=== PATIENT | female | born 1970 | race Caucasian/White ===

== ENCOUNTER 2017-11-02 14:37 | Emergency (ER) | payer OTHER ==
[2017-11-02 17:19] LABS: ABS Basophils 0 10^3/ul (0-0.2); ABS Eosinophils 0.2 10^3/ul (0-0.6); ABS Lymphocytes 2.2 10^3/ul (1.0-4.8); ABS Monocytes 0.4 10^3/ul (0-0.8); ABS Neutrophils 2.8 10^3/ul (1.5-7.7); ABS Nucleated RBC 0 10^3/ul; Eosinophil % 3.5 % (0-6); Hematocrit 38 % (35-47); Lymphocyte % 39.6 % (25-47); Mean Corpuscular HGB Conc 35 g/dl (31-36); Mean Corpuscular Hemoglobin 29 pg (27-31); Mean Corpuscular Volume 85 fL (80-97); Mean Platelet Volume 6 um3 (7.4-10.4); Nucleated Red Blood Cells % 0.1; Platelet Count 303 10^3/ul (150-450); Red Blood Count 4.46 10^6/ul (4.0-5.4); Red Cell Distribution Width 14 % (10.5-15); White Blood Count 5.6 10^3/ul (3.5-10.8)
[2017-11-02 17:37] LABS: EGFR Non-African American 125.3 (>60)
--- NOTE | 2017-11-02 18:13 | RAD ---
HISTORY: Right leg pain and swelling TECHNIQUE: Multiple transverse and longitudinal ultrasound images were obtained of the veins of the right lower extremity using grayscale, color Doppler, and spectral Doppler imaging with and without compression and with augmentation. FINDINGS: VEINS: The common femoral vein, deep femoral vein, femoral vein and popliteal vein are compressible throughout their course, with normal flow on color Doppler imaging and normal response to augmentation on spectral Doppler imaging. SOFT TISSUES: At the right popliteal fossa there is a mildly echogenic and avascular structure measuring 3.0 x 4.9 cm in the axial plane and 9.3 cm in sagittal projection. IMPRESSION: 1. No sonographic evidence of deep vein thrombosis. 2. Sonographic findings are most consistent with a complex right popliteal fossa cyst.
[2017-11-02 18:15] VITALS: BP 146/82
--- NOTE | 2017-11-04 08:40 | ED ---
Alex Moss Angela, scribed for Duane Lopez MD on 11/02/17 at 1704 . Lower Extremity - HPI Summary HPI Summary: This pt is a 47 y/o female presenting [facility] sent by podiatry for right foot pain to rule out DVT. Pt reports she went to see her slubber runner today, Dr. Gusman (in [place], [place]) and was told to come to the ED to rule out DVT. She states she has had this pain for days now. Pt notes she has a hook's cyst behind her right knee. PMHx: psoriatic arthritis, diabetes. - History of Current Complaint Chief Complaint: EDExtremityLower Stated Complaint: RT FOOT SWELLING Hx Obtained From: Patient Mechanism Of Injury: Other - none Onset of Pain: Days Onset/Duration: Still Present Severity Currently: Severe Pain Intensity: 7 Pain Scale Used: 0-10 Numeric Location: Is Discrete @ - right leg Associated Signs And Symptoms: Positive: Swelling Aggravating Factor(s): Nothing Alleviating Factor(s): Nothing Able to Bear Weight: Yes - Allergies/Home Medications Allergies/Adverse Reactions: Allergies Allergy/AdvReac Type Severity Reaction Status Date / Time metformin Allergy Intermediate Shortness Verified 11/02/17 16:54 of Breath amoxicillin AdvReac Severe GI Upset Verified 11/02/17 17:00 Home Medications: Home Medications Cider Vinegar [Apple Cider Vinegar] 500 mg PO DAILY 11/02/17 [History Confirmed 11/02/17] Ibuprofen TAB* [Motrin TAB* 600 MG] 600 mg PO Q6H PRN 11/02/17 [History Confirmed 11/02/17] Magnesium CITRATE* [Citrate of Magnesia*] 100 ml PO BID 11/02/17 [History Confirmed 11/02/17] Milk Thistle [Milk Thistle Extract] 175 mg PO DAILY 11/02/17 [History Confirmed 11/02/17] Multivitamin with Folic Acid [Essential One Daily Multi] 1 tab PO DAILY [History Confirmed 11/02/17] Crocker-3S/Dha/Epa/Fish Oil [Fish Oil 1,200 mg Softgel] 1 each PO DAILY 11/02/17 [ History Confirmed 11/02/17] Pantoprazole TAB (NF) [Protonix TAB (NF)] 40 mg PO DAILY 11/02/17 [History Confirmed 11/02/17] Sertraline HCl [Zoloft] 100 mg PO DAILY 11/02/17 [History Confirmed 11/02/17] Vitamin D3 50 mg PO DAILY 11/02/17 [History Confirmed 11/02/17] glipiZIDE [Glipizide ER] 5 mg PO DAILY 11/02/17 [History Confirmed 11/02/17] PMH/Surg Hx/FS Hx/Imm Hx Endocrine/Hematology History: Reports: Hx Diabetes - TYPE II- ON ORAL MEDICATION FOR Cardiovascular History: Denies: Hx Hypertension, Hx Pacemaker/ICD History: Denies: Hx Dialysis, Hx Renal Disease Musculoskeletal History: Reports: Hx Arthritis Denies: Hx Rheumatoid Arthritis, Hx Osteoporosis Sensory History: Denies: Hx Contacts or Glasses, Hx Hearing Aid Opthamlomology History: Denies: Hx Contacts or Glasses Neurological History: Reports: Hx Headaches - ONCE IN A WHILE Psychiatric History: Reports: Hx Anxiety - ON MEDICATION FOR, Hx Depression - ON MEDICATION FOR Denies: Hx Panic Disorder - Surgical History Surgery Procedure, Year, and Place: Partial hysterectomy 2011. RIGHT KNEE [id number]. CARPAL TUNNEL RIGHT HAND. LUMPECTOMY Hx Anesthesia Reactions: No Infectious Disease History: No Infectious Disease History: Denies: Traveled Outside the [place] in Last 30 Days - Family History Family History: Father: CHF. Brother and sister: Hepatitis C - Social History Alcohol Use: Weekly Alcohol Amount: 5 BEERS - 2 TIMES PER WEEK Substance Use Type: Reports: None Smoking Status (MU): Light Every Day Tobacco Smoker Amount Used/How Often: 5 CIGARETTES PER DAY X 7 YEARS ON AND OFF Review of Systems Negative: Fever, Chills Eyes: Negative ENT: Negative Cardiovascular: Negative Respiratory: Negative Musculoskeletal: Other - right foot pain and swelling All Other Systems Reviewed And Are Negative: Yes Physical Exam - Summary Physical Exam Summary: VITAL SIGNS: Reviewed. GENERAL: Patient is a well-developed and nourished female who is lying comfortable in the stretcher. Patient is not in any acute respiratory distress. HEAD AND FACE: No signs of trauma. No ecchymosis, hematomas or skull depressions. No sinus tenderness. EYES: PERRLA, EOMI x 2, No injected conjunctiva, no nystagmus. EARS: Hearing grossly intact. Ear canals and tympanic membranes are within normal limits. MOUTH: Oropharynx within normal limits. NECK: Supple, trachea is midline, no adenopathy, no JVD, no carotid bruit, no c- spine tenderness, neck with full ROM. CHEST: Symmetric, no tenderness at palpation LUNGS: Clear to auscultation bilaterally. No wheezing or crackles. CVS: Regular rate and rhythm, S1 and S2 present, no murmurs or gallops appreciated. ABDOMEN: Soft, non-tender. No signs of distention. No rebound no guarding, and no masses palpated. Bowel sounds are normal. EXTREMITIES: FROM in all major joints, no edema, no cyanosis or clubbing. RLE: good pulses, good capillary refill. NEURO: Alert and oriented x 3. No acute neurological deficits. Speech is normal and follows commands. SKIN: Dry and warm Triage Information Reviewed: Yes Vital Signs On Initial Exam: Initial Vitals Temp Pulse Resp BP Pulse Ox 98.0 F 85 16 160/81 97 11/02/17 14:40 11/02/17 14:40 11/02/17 14:40 11/02/17 14:40 11/02/17 14:40 Vital Signs Reviewed: Yes Diagnostics - Vital Signs Vital Signs Temp Pulse Resp BP Pulse Ox 11/02/17 14:40 98.0 F 85 16 160/81 97 - Laboratory Result Diagrams: 11/02/17 17:05 11/02/17 17:05 Lab Statement: Any lab studies that have been ordered have been reviewed, and results considered in the medical decision making process. - Ultrasound No standard instances Ultrasound Interpretation: No Acute Changes - Right lower extremity US IMPRESSION: 1. No sonographic evidence of deep vein thrombosis. 2. Sonographic findings are most consistent with a complex right popliteal fossa cyst. Dr. Lopez has reviewed this radiology report. Ultrasound Interpretation Completed By: Radiologist Lower Extremity Course/Dx - Course Assessment/Plan: This pt is a 47 y/o female presenting to [facility] sent by podiatry for right foot pain to rule out DVT. Pt reports she went to see her slubber runner today, Dr. Gusman (in [place], [place]) and was told to come to the ED to rule out DVT. She states she has had this pain for days now. Pt notes she has a hook's cyst behind her right knee. PMHx: psoriatic arthritis, diabetes. Test results without any significant abnormalities except for CRP of 30. US of right lower extremity shows 1. No sonographic evidence of deep vein thrombosis. 2. Sonographic findings are most consistent with a complex right popliteal fossa cyst. Since the pt does not have a DVT she will be discharged home with follow up from PCP. Pt is hemodynamically stable, alert and oriented x3. - Diagnoses Provider Diagnoses: Leg pain Discharge - Discharge Plan Condition: Stable Disposition: HOME Patient Education Materials: Leg Pain (ED) Referrals: Lilia Story MD [Primary Care Provider] - 3 Days Additional Instructions: Please follow up with your primary care provider. RETURN TO THE ED FOR ANY WORSENING SYMPTOMS. The documentation as recorded by the Alex daniel Angela accurately reflects the service I personally performed and the decisions made by , Duane Lopez MD.
== END 2017-11-02 18:49 | disposition home or self-care (01) ==
LOC: ED 14:37
DX: M79.604 Pain in right leg (principal); E11.9 Type 2 diabetes mellitus without complications; R51 Headache; F17.210 Nicotine dependence, cigarettes, uncomplicated
CPT/HCPCS: 36415; 80053; 85025; 86140; 99283

== ENCOUNTER 2018-11-09 05:46 | Inpatient (IN) | payer OTHER ==
--- NOTE | 2018-10-27 13:15 | HP ---
ADDENDUM: MEDICATIONS: 1. Glipizide 5 mg p.o. t.i.d. 2. Omeprazole 20 mg one each day. 3. Sertraline 100 mg 1 each day. 4. Januvia 100 mg 1 a day. 5. Ibuprofen 600 mg b.i.d. as needed. 6. She also takes multivitamins, omega-3 at 1000 mg per day. 7. Apple cider vinegar twice a day. 8. Milk thistle 175 mg each day. 9. Mag citrate 100 mg twice daily. 10. Vitamin D3 at 5000 units 1 tablet daily. [id number]/[facility] #: [id number] MTDD
--- NOTE | 2018-10-27 13:32 | HP ---
HISTORY AND PHYSICAL: DATE OF ADMISSION: 11/09/18 CHIEF COMPLAINT: Right knee pain. HISTORY OF PRESENT ILLNESS: She is 48 and has had increasingly severe knee symptoms and arthritis fo r the last years. She was, last year, ready to have a total knee replacement with Dr. Welch at [facility] and it was canceled because her hemoglobin A1cs were too high, so in the interim, alonzo decided to have her knee done here and we have been seeing her. The right knee pain limits her walking to 1 to 2 blocks. She has been doing stairs one at a time for the last couple of years and the right knee pain awakens her during sleep several times each night. She has been using ibuprofen for pain. She is now under the care of Dr. Poole for her primary care [facility]. No history of a heart attack, no history of chest pain felt to be related to her heart. No lung prob lems, no pneumonia or bronchitis. She has not been short of breath. She is able to walk up 2 flight s of stairs without chest pain and she thinks with 2 flights of stairs, there might be some shortness of breath. She smokes 1 pack per week. She drinks 8 beers per week. No history of cancers, no his tory of bleeding difficulties. PAST MEDICAL HISTORY: She has had adult-onset diabetes. She is a smoker. She is somewhat overweigh t. She has had female stress incontinence, depression, type 2 diabetes, GERD, also history of psoria sis. PAST SURGICAL HISTORY: She has had a partial hysterectomy. ALLERGIES: To AMOXICILLIN and I do plan to use Ancef for her perioperative prophylaxis. Also allerg ic to METFORMIN. FAMILY HISTORY: Positive for arthritis. SOCIAL HISTORY: She lives with her . She is an infrequent [employer]. PHYSICAL EXAMINATION GENERAL: She is slightly overweight, not acutely distressed, a slight limp on the right. VITAL SIGNS: Height 63 inches, weight 204 pounds. Pulse 79, blood pressure 132/74. HEENT: The head is NC/AT. LUNGS: Clear bilaterally. HEART: Regular. S1, S2 normal. No murmurs or gallops. ABDOMEN: Soft and nontender. There is no organomegaly. EXTREMITIES: The right leg has a 2+ dorsalis pedis pulse. The right knee has had medial tenderness, stable MCL and LCL extension -2 to 3 degrees, flexion 120. The thigh and calf are soft. Neurovascu larly, the foot is intact. NEUROLOGIC: The cranial nerves are grossly intact. DIAGNOSTIC STUDIES: The radiographs show bone on bone medial arthritis of the right knee and there are also patellofemoral degenerative changes. IMPRESSION AND PLAN: Severe right knee patellofemoral arthritis. The patient has adult-onset diabet es. She has been working hard on the A1c and the plan is for a right total knee replacement. [id number]/[facility] #: [id number]
[~2018-11-09 05:46] MED LIST: Buffered Lidocaine 1% SYRIN* 1 ML/SYRINGE INTRADERM ONE; Tranexamic Acid 1,000 MG in NS 0.9% 50 ML* (outpatient use) IV SCH
--- OUTSIDE RECORDS SUMMARY | 2018-11-09 05:50 | XMS REPORT | Continuity of Care Document ---
:1970 External Reference #:[id number] Author Name Carrie Chavira Care Team Providers Name Role Phone Masood Pendleton MD Primary Care Physician Unavailable Payers Date Identification Numbers Payment Provider Subscriber Expires: 2011 Policy Number: [id number] Medicaid Hallie Negro PayID: [id number] [address] [place] [address] Policy Number: [id number] [place] Hallie Negro Group Number: [id number] [address] PayID: [id number] [place] [address] Advance Directives Description No Information Available Problems Date Description Provider Status Onset: 03/23/2018 Gastroesophageal reflux disease Masood Pendleton M.D. Active Onset: 08/18/2016 Localized, primary osteoarthritis Yaz Mehta M.D. Active Onset: 08/18/2016 Localized, primary osteoarthritis of Yaz Mehta M.D. Active the ankle and/or foot Onset: 03/23/2018 Type 2 diabetes mellitus Masood Pendleton M.D. Active Note: glipizide 2011 Onset: 03/23/2018 Mild recurrent major depression Masood Pendleton M.D. Active Onset: 03/23/2018 Female stress incontinence Masood Pendleton M.D. Active Onset: 03/23/2018 Diarrhea Masood Pendleton M.D. Active Onset: 04/06/2018 Mixed hyperlipidemia Masood Pendleton M.D. Active Onset: 04/06/2018 Obesity Masood Pendleton M.D. Active Onset: 04/06/2018 Ganglion of hand Masood Pendleton M.D. Active Onset: 05/05/2018 Tobacco user Masood Pendleton M.D. Active Onset: 07/21/2018 Knee pain Masood Pendleton M.D. Active Onset: 07/21/2018 Vitamin D deficiency Masood Pendleton M.D. Active Family History Date Family Member(s) Observation Comments General Arthritis Father Psoriasis Father due to Diabetes () - Age 74 Mother Diabetes Maternal Grandmother Stomach Cancer Social History Type Date Description Comments Sex Unknown Education Highest level completed, 12th grade Marital Status lives with ex Lives With Occupation Unemployed Tobacco Use Start: Unknown Heavy tobacco smoker (more than 10 cigarettes/day) Smoking Status Reviewed: 10/27/18 Heavy tobacco smoker (more than 10 cigarettes/day) ETOH Use Occasionally consumes alcohol ETOH Use 6 beers weekly Tobacco Use Start: Unknown Patient is a current smokes 1 pack a week smoker, smokes every day Exercise Exercises rarely Type/Frequency Allergies, Adverse Reactions, Alerts Date Description Reaction Status Severity Comments 11/13/2015 Amoxicillin Nausea and Vomiting Active 11/13/2015 Metformin sob;joint pain, dizzines Active Medications Medication Date Status Form Strength Qnty SIG Indications Ordering Provider Ranitidine 150 07/05 Active Tablets 150mg 30tab one tablet PO Annalise Maximum s at bedtime as TINA Urias Strength directed. Betamethasone 07/09 Active Lotion 0.1% 60uni apply two Rei Val ts times daily as mari Melendez M.D. Calcipotriene/ Active Ointment 0.005-0.0 use on Unknown Betamethasone / 64% affected area Dipropionate 2x daily Multi Complete Active Capsules daily Unknown Glipizide Active Tablets 5mg 1 by mouth three times a day [place] 3 Active Capsules 1000mg 1 by mouth qd. Unknown Omeprazole Active Capsules 20mg [address] every day Sertraline HCL Active Tablets 100mg 1 by mouth Unknown every day Triamcinolone Active Cream 0.5% apply to Unknown Acetonide affected area prn Apple Cider Active Tablets twice daily Unknown Vinegar Milk Thistle Active Capsules 175mg daily Unknown Magnesium Active Tablets 100mg twice daily Unknown Citrate /0000 Vitamin D3 Active Capsules 5000Unit take one Unknown Maximum /0000 capsule/tablet Strength daily by mouth Januvia Active Tablets 100mg 30tab Take 1 Tablet Masood / s By Mouth Every Pachikara, Day M.D. Ibuprofen Active Tablets 600mg 30tab Take 1 Tablet Caitlin /0000 s By Mouth Every Cotton, 12 Hours as M.D. Needed Steglatro 07/21 Hx Tablets 5mg 30tab once daily am K21.9 s Pachikara, - M.D. 07/21 Losartan 05/05 Hx Tablets 25mg 30tab 1 by mouth E11.9 [place] s once a day Pachikara, - M.D. 10/27 Invokana 04/06 Hx Tablets 100mg 30tab 1 by mouth E11.9 s every day (Not Pachikara, - taking) M.D. 05/25 Januvia 03/23 Hx Tablets 100mg 30tab 1 by mouth E11.9 s every day Pachikara, - M.D. 04/06 Doxycycline 01/29 Hx Capsules 100mg 30cap 1 by mouth s twice a day Al, - M.D. 01/06 Luxiq 07/08 Hx Foam 0.12% 100gm apply to scalp psoriasis once Al, - every other M.D. 07/09 day as needed for psoriasis Plaquenil 07/08 Hx Tablets 200mg 42tab Take one by R74.8 s mouth every Al, - other day for M.D. 01/06 1 week then by mouth every day ongoing Humira Pen 06/25 Hx PNKT 40mg/0.8M 2unit inject 40 mg L40.59 L s subcutaneously Al, - every other M.D. 07/08 week has started yet Stelara 06/13 Hx Soln 90mg/ml 3ml 90 mg SQ L40.59 Prefill initially, Al, - Syringe followed by 90 M.D. 10/05 mg SQ 4 later and then 90mg SQ every 12 weeks Sulfasalazine 01/02 Hx Tablets 500mg 42tab Take [address] cheung By Mouth Every Al, - Day For 7 Days M.D. 02/19 Then Take Tablet By Mouth Two Times Daily Enbrel 12/11 Hx Solution 50mg/ml 3.920 inject L40.53 Rei Surecl Auto-Inje ml subcutaneously Al - ct 50mg every M.D. Sulfasalazine 11/13 Hx Tablets 500mg 42tab take one tab L40.53 DR cheung daily for 1 Al, - week then 1 M.D. 12/11 tab twice /2015 daily ongoing Vitamin D Hx Tablets by mouth Unknown /0000 everyday - 03/23 Pantoprazole Hx Tablets 40mg 1 by mouth Unknown Sodium /0000 DR every day - 05/05 Medications Administered in Office Medication Date Status Form Strength Qnty SIG Indications Ordering Provider Triamcinolone 05/05/ Administered Injection Rei Juarez) 2017 Mariajose Mleendez Triamcinolone 05/05/ Administered Injection Rei Juarez) 2017 Mariajose Melendez Triamcinolone 05/05/ Administered Injection Rei Juarez) 2017 Mariajose Melendez Triamcinolone 05/05/ Administered Injection Rei Juarez) 2017 Mariajose Melendez Depomedrol 40MG 08/18/ Administered Injection Yaz 2015 Mariajose Mehta Immunizations CPT Code Status Date Vaccine Lot # [id number] Given 07/21/2018 Influenza Virus Vaccine, Quadrivalent, Split, [id number] Preservative Free [id number] Given 06/13/2016 Influenza Virus Vaccine, Quadrivalent, Split, [id number] Preservative Free 08809 Given 12/12/2015 Pneumonia Vaccine [id number] Vital Signs Date Vital Result Comment 10/27/2018 11:40am Height 63 inches 5'3" Weight 204.00 lb Heart Rate 79 /min BP Systolic Sitting 132 mmHg BP Diastolic Sitting 74 mmHg O2 % BldC Oximetry 97 % BMI (Body Mass Index) 36.1 kg/m2 10/27/2018 9:35am Height 63 inches 5'3" Weight 202.00 lb Heart Rate 66 /min BP Systolic 138 mmHg BP Diastolic 78 mmHg Body Temperature 98.3 F Pain Level 4 BMI (Body Mass Index) 35.8 kg/m2 09/29/2018 10:48am Height 63 inches 5'3" Weight 198.00 lb Heart Rate 69 /min BP Systolic Sitting 135 mmHg BP Diastolic Sitting 84 mmHg Body Temperature 97.9 F O2 % BldC Oximetry 97 % BMI (Body Mass Index) 35.1 kg/m2 07/28/2018 9:25am Height 63 inches 5'3" Weight 205.75 lb Heart Rate 72 /min BP Systolic 132 mmHg BP Diastolic 84 mmHg Respiratory Rate 16 /min Body Temperature 97.7 F Pain Level 5 BMI (Body Mass Index) 36.4 kg/m2 07/21/2018 1:55pm Height 62 inches 5'2" Weight 207.00 lb Heart Rate 75 /min BP Systolic Sitting 135 mmHg BP Diastolic Sitting 82 mmHg O2 % BldC Oximetry 90 % BMI (Body Mass Index) 37.9 kg/m2 07/05/2018 1:12pm Height 62 inches 5'2" Weight 206.00 lb Heart Rate 74 /min BP Systolic 133 mmHg BP Diastolic 80 mmHg BMI (Body Mass Index) 37.7 kg/m2 06/07/2018 3:06pm Height 62 inches 5'2" Weight 202.19 lb Heart Rate 69 /min BP Systolic 124 mmHg BP Diastolic 81 mmHg Body Temperature 97.4 F Pain Level 3 burning in stomach O2 % BldC Oximetry 96 % BMI (Body Mass Index) 37.0 kg/m2 05/05/2018 1:21pm Height 62 inches 5'2" Weight 206.00 lb Heart Rate 79 /min BP Systolic Sitting 154 mmHg BP Diastolic Sitting 77 mmHg O2 % BldC Oximetry 95 % BMI (Body Mass Index) 37.7 kg/m2 05/05/2018 11:44am Height 62 inches 5'2" Weight 206.25 lb Heart Rate 74 /min BP Systolic Sitting 140 mmHg BP Diastolic Sitting 85 mmHg Respiratory Rate 14 /min Pain Level 7 BMI (Body Mass Index) 37.7 kg/m2 04/06/2018 12:56pm Height 62 inches 5'2" Weight 208.12 lb Heart Rate 78 /min BP Systolic Sitting 130 mmHg BP Diastolic Sitting 78 mmHg Body Temperature 98.0 F O2 % BldC Oximetry 97 % BMI (Body Mass Index) 38.1 kg/m2 04/06/2018 11:48am Height 62 inches 5'2" Weight 209.00 lb Heart Rate 73 /min BP Systolic 124 mmHg BP Diastolic 80 mmHg O2 % BldC Oximetry 96 % BMI (Body Mass Index) 38.2 kg/m2 Last Menstrual Period [id number] 03/23/2018 3:58pm Height 62 inches 5'2" Weight 204.00 lb Heart Rate 103 /min BP Systolic Sitting 130 mmHg BP Diastolic Sitting 78 mmHg Body Temperature 97.8 F O2 % BldC Oximetry 95 % BMI (Body Mass Index) 37.3 kg/m2 01/06/2018 8:17am Height 63 inches 5'3" Weight 204.00 lb Heart Rate 64 /min BP Systolic Sitting 144 mmHg BP Diastolic Sitting 90 mmHg Respiratory Rate 14 /min Pain Level 5 BMI (Body Mass Index) 36.1 kg/m2 01/21/2017 2:12pm Height 63 inches 5'3" Weight 218.00 lb Heart Rate 77 /min BP Systolic Sitting 151 mmHg BP Diastolic Sitting 98 mmHg Body Temperature 98.1 F Pain Level 3 BMI (Body Mass Index) 38.6 kg/m2 12/10/2016 11:38am Height 63 inches 5'3" Weight 200.00 lb Heart Rate 70 /min BP Systolic 138 mmHg BP Diastolic 80 mmHg Body Temperature 98.2 F Pain Level 5 BMI (Body Mass Index) 35.4 kg/m2 11/19/2016 11:28am Height 62 inches 5'2" Weight 200.00 lb Heart Rate 74 /min BP Systolic 129 mmHg BP Diastolic 86 mmHg Pain Level 5 BMI (Body Mass Index) 36.6 kg/m2 08/18/2016 10:37am Height 62 inches 5'2" Weight 215.00 lb Heart Rate 72 /min BP Systolic 137 mmHg BP Diastolic 80 mmHg Respiratory Rate 17 /min Body Temperature 98.7 F Pain Level 4 BMI (Body Mass Index) 39.3 kg/m2 07/08/2016 8:54am Height 62 inches 5'2" Weight 221.00 lb Heart Rate 68 /min BP Systolic Sitting 128 mmHg BP Diastolic Sitting 70 mmHg Body Temperature 97.9 F Pain Level 4 BMI (Body Mass Index) 40.4 kg/m2 06/13/2016 11:05am Height 62 inches 5'2" Weight 224.00 lb Heart Rate 84 /min BP Systolic Sitting 124 mmHg BP Diastolic Sitting 70 mmHg Body Temperature 98.5 F Pain Level 4 BMI (Body Mass Index) 41.0 kg/m2 05/19/2016 11:24am Height 62 inches 5'2" Weight 221.25 lb Heart Rate 65 /min BP Systolic 140 mmHg BP Diastolic 90 mmHg Body Temperature 98.3 F Pain Level 2 O2 % BldC Oximetry 98 % BMI (Body Mass Index) 40.5 kg/m2 02/20/2016 2:12pm Height 62 inches 5'2" Weight 215.00 lb Heart Rate 70 /min BP Systolic Sitting 122 mmHg BP Diastolic Sitting 70 mmHg Respiratory Rate 14 /min Body Temperature 98.0 F Pain Level 1 BMI (Body Mass Index) 39.3 kg/m2 12/12/2015 9:00am Height 62 inches 5'2" Weight 220.00 lb Heart Rate 70 /min BP Systolic Sitting 142 mmHg BP Diastolic Sitting 80 mmHg Pain Level 7 BMI (Body Mass Index) 40.2 kg/m2 11/13/2015 9:59am Height 62 inches 5'2" Weight 219.50 lb Heart Rate 70 /min BP Systolic Sitting 138 mmHg BP Diastolic Sitting 80 mmHg Body Temperature 98.0 F Pain Level 8 BMI (Body Mass Index) 40.1 kg/m2 12/11/2010 4:06pm Height 62 inches 5'2" Weight 215.00 lb Heart Rate 80 /min BP Systolic 133 mmHg BP Diastolic 86 mmHg BMI (Body Mass Index) 39.3 kg/m2 Results Test Date Facility Test Result H/L Range Note Order 10/27/2018 [facility] EKG <pending> Laboratory test 09/29/2018 [facility] Hemoglobin A1c 7.4 High 5-7 finding Laboratory test 07/28/2018 [facility] Vitamin D Total 38.4 ng/ mL N 20-[address]) [place] [address] [phone] Laboratory test 06/23/2018 [facility] Clotest SEE RESULT 1 , [address] [place] [address] [phone] Laboratory test 06/23/2018 [facility] Surgical Interface SEE RESULT 3, [address] [place] [address] [phone] Lipid Profile 04/28/2018 [facility] Triglycerides 172 mg/dL 5, 6 (Trig/Chol/HDL) [address] [place] [address] [phone] Cholesterol 196 mg/dL 7 HDL Cholesterol 49.8 mg/dL 8 LDL Cholesterol 112 mg/dL 9 Laboratory test 04/02/2018 [facility] Stool Culture SEE RESULT [address] [place] [address] [phone] Helico Pylori Antigen- Stool Negative Negative 11 Comp Metabolic Panel 03/31/2018 [facility] Sodium 137 mmol/L N 135-[address] [place] [address] [phone] Potassium 4.4 mmol/L N 3.5-5.0 Chloride 101 mmol/L N 101-111 Co2 Carbon Dioxide 27 mmol/L N 22-32 Anion Gap 9 mmol/L N 2-11 Glucose 264 mg/dL High 70-100 Blood Urea Nitrogen 13 mg/dL N 6-24 Creatinine 0.52 mg/dL N 0.51-0.95 BUN/Creatinine Ratio 25.0 High 8-20 Calcium 10.0 mg/dL N 8.6-10.3 Total Protein 7.0 g/dL N 6.4-8.9 Albumin 4.3 g/dL N 3.2-5.2 Globulin 2.7 g/dL N 2-4 Albumin/Globulin Ratio 1.6 N 1-3 Total Bilirubin 0.30 mg/dL N 0.2-1.0 Alkaline Phosphatase 43 U/L N 34-104 Alt 44 U/L N 7-52 Ast 34 U/L N 13-39 Egfr Non- 125.3 >60 Egfr 151.7 >60 12 Lipid Profile 03/31/2018 [facility] Triglycerides 102 mg/dL 13 (Trig/Chol/HDL) [address] [place] [address] [phone] Cholesterol 203 mg/dL 14 HDL Cholesterol 46.8 mg/dL 15 LDL Cholesterol 136 mg/dL 16 Urine Microalbumin 03/31/2018 [facility] Ur Microalbumin 17.8 mg /L Random [address] (mg/L) [place] [address] [phone] Urine Creatinine 152.95 mg/dL Urine Microalbumin/Creatinine 11.6 ug/mg N <31 Laboratory test 03/23/2018 [facility] Hemoglobin A1c 8.9 High 5-7 finding Laboratory test 01/06/2018 [facility] C Reactive 21.83 mg/L High < 5.00 [address] [place] [address] [phone] Erythrocyte Sed Rate 48 mm/Hr High 0-14 18 Vitamin D, 1,25 Dihydroxy 59 pg/mL 18-78 19 CBC Auto Diff 01/06/2018 [facility] White Blood 7.6 10^3/uL N 3.5-10.[address] [place] [address] [phone] Red Blood Count 4.62 10^6/uL N 4.0-5.4 Hemoglobin 13.8 g/dL N 12.0-16.0 Hematocrit 40 % N 35-47 Mean Corpuscular Volume 87 fL N 80-97 Mean Corpuscular Hemoglobin 30 pg N 27-31 Mean Corpuscular HGB Conc 34 g/dL N 31-36 Red Cell Distribution Width 14 % N 10.5-15 Platelet Count 314 10^3/uL N 150-450 Mean Platelet Volume 6.9 um3 Low 7.4-10.4 Abs Neutrophils 4.6 10^3/uL N 1.5-7.7 Abs Lymphocytes 2.2 10^3/uL N 1.0-4.8 Abs Monocytes 0.5 10^3/uL N 0-0.8 Abs Eosinophils 0.2 10^3/uL N 0-0.6 Abs Basophils 0 10^3/uL N 0-0.2 Abs Nucleated RBC 0 10^3/uL Granulocyte % 61.0 % N 38-83 Lymphocyte % 29.6 % N 25-47 Monocyte % 6.1 % N 0-7 Eosinophil % 3.0 % N 0-6 Basophil % 0.3 % N 0-2 Nucleated Red Blood Cells % 0.1 Comp Metabolic Panel 01/06/2018 [facility] Sodium 136 mmol/L Low 139-[address] [place] [address] [phone] Potassium 4.5 mmol/L N 3.5-5.0 Chloride 103 mmol/L N 101-111 Co2 Carbon Dioxide 24 mmol/L N 22-32 Anion Gap 9 mmol/L N 2-11 Glucose 232 mg/dL High 70-100 Blood Urea Nitrogen 15 mg/dL N 6-24 Creatinine 0.59 mg/dL N 0.51-0.95 BUN/Creatinine Ratio 25.4 High 8-20 Calcium 9.8 mg/dL N 8.6-10.3 Total Protein 7.2 g/dL N 6.4-8.9 Albumin 4.4 g/dL N 3.2-5.2 Globulin 2.8 g/dL N 2-4 Albumin/Globulin Ratio 1.6 N 1-3 Total Bilirubin 0.30 mg/dL N 0.2-1.0 Alkaline Phosphatase 60 U/L N 34-104 Alt 37 U/L N 7-52 Ast 32 U/L N 13-39 Egfr Non- 108.3 >60 Egfr 139.3 >60 20 Laboratory test 01/21/2017 [facility] C Reactive 22.38 mg/L High < 5.00 [address] [place] [address] [phone] Erythrocyte Sed Rate 34 mm/Hr High 0-14 22 Celiac Panel 01/21/2017 [facility] Tissue Transglutaminase <1.2 U/mL N [address] [place] [address] [phone] Immunoglobulin A 250 mg/dL N 61 - 356 Celiac Interpretation See Comment N 24 Celiac Hla DQ1/DQ2 01/21/2017 [facility] [id number] SEE BELOW N [address] [place] [address] [phone] [id number] SEE BELOW N 26 Celiac Gene Pairs Present? No N Celiac Gene Interpretation See Comment N 27 Laboratory test 01/21/2017 [facility] Lyme Disease Negative N Negative [address] [place] [address] [phone] CBC Auto Diff 01/21/2017 [facility] White Blood 7.0 10^3/uL N 3.5-10.[address] [place] [address] [phone] Red Blood Count 4.67 10^6/uL N 4.0-5.4 Hemoglobin 13.6 g/dL N 12.0-16.0 Hematocrit 40 % N 35-47 Mean Corpuscular Volume 87 fL N 80-97 Mean Corpuscular Hemoglobin 29 pg N 27-31 Mean Corpuscular HGB Conc 34 g/dL N 31-36 Red Cell Distribution Width 13 % N 10.5-15 Platelet Count 263 10^3/uL N 150-450 Mean Platelet Volume 7 um3 Low 7.4-10.4 Abs Neutrophils 3.9 10^3/uL N 1.5-7.7 Abs Lymphocytes 2.4 10^3/uL N 1.0-4.8 Abs Monocytes 0.5 10^3/uL N 0-0.8 Abs Eosinophils 0.2 10^3/uL N 0-0.6 Abs Basophils 0 10^3/uL N 0-0.2 Abs Nucleated RBC 0 10^3/uL N Granulocyte % 55.7 % N 38-83 Lymphocyte % 33.8 % N 25-47 Monocyte % 7.1 % N 1-9 Eosinophil % 2.8 % N 0-6 Basophil % 0.6 % N 0-2 Nucleated Red Blood Cells % 0 N Comp Metabolic Panel 01/21/2017 [facility] Sodium 135 mmol/L N 133-[address] [place] [address] [phone] Potassium 4.0 mmol/L N 3.5-5.0 Chloride 101 mmol/L N 101-111 Co2 Carbon Dioxide 27 mmol/L N 22-32 Anion Gap 7 mmol/L N 2-11 Glucose 156 mg/dL High 70-100 Blood Urea Nitrogen 11 mg/dL N 6-24 Creatinine 0.90 mg/dL N 0.51-0.95 BUN/Creatinine Ratio 12.2 N 8-20 Calcium 9.9 mg/dL N 8.6-10.3 Total Protein 7.3 g/dL N 6.4-8.9 Albumin 4.4 g/dL N 3.2-5.2 Globulin 2.9 g/dL N 2-4 Albumin/Globulin Ratio 1.5 N 1-3 Total Bilirubin 0.30 mg/dL N 0.2-1.0 Alkaline Phosphatase 51 U/L N 34-104 Alt 56 U/L High 7-52 Ast 49 U/L High 13-39 Egfr Non- 66.8 N >60 Egfr 85.9 N >60 29 Laboratory test 01/21/2017 [facility] Creatine 93 U/L N 10- 223 [address] Kinase(CK) [place] [address] [phone] Connective 01/21/2017 [facility] Anti-Nuclear 1.3 U High 31 Tissue Panel [address] [place] [address] [phone] Cyclic Citrullinated Peptide <15.6 U N 32 Interpretation See Comment N 33 Cat Scratch 01/21/2017 [facility] Bartonella 1:128 titer N <1: 128 Fever Panel [address] [place] [address] [phone] Bartonella Henselae IgM <1:20 titer N <1:20 Bartonella Godfrey IgG <1:128 titer N <1:128 Bartonella Godfrey IgM <1:20 titer N <1:20 34 Celiac Panel 01/21/2017 [facility] Tissue Transglutaminase <1.2 U/mL N [address] [place] [address] [phone] Immunoglobulin A 250 mg/dL N 61 - 356 Celiac Interpretation See Comment N 36 Connective Tissue 01/21/2017 [facility] Anti-Nuclear 1.3 U High [address] [place] [address] [phone] Cyclic Citrullinated Peptide <15.6 U N 38 Interpretation See Comment N 39 Cat Scratch 01/21/2017 [facility] Bartonella 1:128 titer N <1: 128 Fever Panel [address] [place] [address] [phone] Bartonella Henselae IgM <1:20 titer N <1:20 Bartonella Godfrey IgG <1:128 titer N <1:128 Bartonella Godfrey IgM <1:20 titer N <1:20 40 Laboratory test 01/21/2017 [facility] Lyme Disease Negative N Negative [address] [place] [address] [phone] Celiac Hla 01/21/2017 [facility] Hla-Dqa1 SEE BELOW N 42 DQ1/DQ2 [address] [place] [address] [phone] [id number] SEE BELOW N 43 Celiac Gene Pairs Present? No N Celiac Gene Interpretation See Comment N 44 Laboratory test 01/21/2017 [facility] Aldolase 8.5 U/L Abnormal <7.7 [address] [place] [address] [phone] Laboratory test 07/08/2016 [facility] Erythrocyte Sed 31 High 0-14 [address] Rate mm/[place] [address] [phone] C Reactive Protein 16.03 mg/L High < 5.00 47 TSH (Thyroid Stim Horm) 3.55 mcIU/mL N 0.34-5.60 48 Hepatitis 07/08/2016 [facility] Hepatitis B Nonreactive N Nonreactive Acute Panel [address] [place] [address] Antigen [phone] Hepatitis B Core IgM Nonreactive N Nonreactive Hepatitis A AB IgM Nonreactive N Nonreactive Hepatitis C Antibody Nonreactive N Nonreactive CBC Auto Diff 07/08/2016 [facility] White Blood 6.7 10^3/uL N 3.5-10.[address] [place] [address] [phone] Red Blood Count 4.66 10^6/uL N 4.0-5.4 Hemoglobin 13.4 g/dL N 12.0-16.0 Hematocrit 40 % N 35-47 Mean Corpuscular Volume 86 fL N 80-97 Mean Corpuscular Hemoglobin 29 pg N 27-31 Mean Corpuscular HGB Conc 34 g/dL N 31-36 Red Cell Distribution Width 13 % N 10.5-15 Platelet Count 271 10^3/uL N 150-450 Mean Platelet Volume 8 um3 N 7.4-10.4 Abs Neutrophils 4.3 10^3/uL N 1.5-7.7 Abs Lymphocytes 1.7 10^3/uL N 1.0-4.8 Abs Monocytes 0.4 10^3/uL N 0-0.8 Abs Eosinophils 0.2 10^3/uL N 0-0.6 Abs Basophils 0.1 10^3/uL N 0-0.2 Abs Nucleated RBC 0 10^3/uL N Granulocyte % 64.1 % N 38-83 Lymphocyte % 26.2 % N 25-47 Monocyte % 6.0 % N 1-9 Eosinophil % 2.7 % N 0-6 Basophil % 1.0 % N 0-2 Nucleated Red Blood Cells % 0 N Comp Metabolic Panel 07/08/2016 [facility] Sodium 131 mmol/L Low 133-[address] [place] [address] [phone] Potassium 4.5 mmol/L N 3.5-5.0 Chloride 99 mmol/L Low 101-111 Co2 Carbon Dioxide 24 mmol/L N 22-32 Anion Gap 8 mmol/L N 2-11 Glucose 272 mg/dL High 70-100 Blood Urea Nitrogen 11 mg/dL N 6-24 Creatinine 0.60 mg/dL N 0.51-0.95 BUN/Creatinine Ratio 18.3 N 8-20 Calcium 9.4 mg/dL N 8.6-10.3 Total Protein 6.8 g/dL N 6.4-8.9 Albumin 4.3 g/dL N 3.2-5.2 Globulin 2.5 g/dL N 2-4 Albumin/Globulin Ratio 1.7 N 1-3 Total Bilirubin 0.40 mg/dL N 0.2-1.0 Alkaline Phosphatase 43 U/L N 34-104 Alt 133 U/L High 7-52 Ast 113 U/L High 13-39 Egfr Non- 107.2 N >60 Egfr 137.8 N >60 49 Laboratory test 05/19/2016 [facility] Lyme Disease Negative N Negative [address] [place] [address] [phone] Laboratory test 12/12/2015 [facility] C Reactive 37.34 mg/L High < 5.00 [address] [place] [address] [phone] Erythrocyte Sed Rate 48 mm/Hr High 0-14 52 CBC Auto Diff 12/12/2015 [facility] White Blood 5.7 10^3/uL N 3.5-10.[address] [place] [address] [phone] Red Blood Count 4.62 10^6/uL N 4.0-5.4 Hemoglobin 13.1 g/dL N 12.0-16.0 Hematocrit 40 % N 35-47 Mean Corpuscular Volume 88 fL N 80-97 Mean Corpuscular Hemoglobin 28 pg N 27-31 Mean Corpuscular HGB Conc 33 g/dL N 31-36 Red Cell Distribution Width 14 % N 10.5-15 Platelet Count 253 10^3/uL N 150-450 Mean Platelet Volume 7 um3 Low 7.4-10.4 Abs Neutrophils 3.4 10^3/uL N 1.5-7.7 Abs Lymphocytes 1.8 10^3/uL N 1.0-4.8 Abs Monocytes 0.4 10^3/uL N 0-0.8 Abs Eosinophils 0.1 10^3/uL N 0-0.6 Abs Basophils 0 10^3/uL N 0-0.2 Abs Nucleated RBC 0.01 10^3/uL N Granulocyte % 59.1 % N 38-83 Lymphocyte % 31.3 % N 25-47 Monocyte % 6.4 % N 1-9 Eosinophil % 2.5 % N 0-6 Basophil % 0.7 % N 0-2 Nucleated Red Blood Cells % 0.1 N Comp Metabolic Panel 12/12/2015 [facility] Sodium 131 mmol/L Low 133-[address] [place] [address] [phone] Potassium 4.2 mmol/L N 3.5-5.0 Chloride 99 mmol/L Low 101-111 Co2 Carbon Dioxide 23 mmol/L N 22-32 Anion Gap 9 mmol/L N 2-11 Glucose 209 mg/dL High 70-100 Blood Urea Nitrogen 10 mg/dL N 6-24 Creatinine 0.49 mg/dL Low 0.51-0.95 BUN/Creatinine Ratio 20.4 High 8-20 Calcium 9.7 mg/dL N 8.6-10.3 Total Protein 7.2 g/dL N 6.4-8.9 Albumin 4.4 g/dL N 3.2-5.2 Globulin 2.8 g/dL N 2-4 Albumin/Globulin Ratio 1.6 N 1-3 Total Bilirubin 0.30 mg/dL N 0.2-1.0 Alkaline Phosphatase 48 U/L N 34-104 Alt 89 U/L High 7-52 Ast 87 U/L High 13-39 Egfr Non- 135.4 N >60 Egfr 174.1 N >60 53 Quantiferon Gold 12/12/2015 [facility] M tuberculosis Negative N Negative TB [address] [place] [address] [phone] Tuberculosis Antigen Value 0.02 IU/mL N 54 Laboratory 12/12/2015 [facility] Complement C3 184 mg/dL Abnormal 75 - 55 test finding [address] [place] [address] [phone] Complement C4 47 mg/dL Abnormal 14 - 40 56 Cardiolipin 12/12/2015 [facility] Phospholipid Ab < 4.0 MPL N 57 Igg/Igm [address] IgM, [place] [address] [phone] Phospholipid Ab IgG < 4.0 GPL N 58 Laboratory test 12/12/2015 [facility] [facility] Anti Dna Negative N Negative [address] ([place] [address] Stranded Dna) [phone] Hazel Screen Negative N Negative 60 Ferritin 83.6 ng/mL N 11-307 61 Hepatitis 12/12/2015 [facility] Hepatitis B Nonreactive N Nonreactive Acute Panel [address] [place] [address] Antigen [phone] Hepatitis B Core IgM Nonreactive N Nonreactive Hepatitis A AB IgM Nonreactive N Nonreactive Hepatitis C Antibody Nonreactive N Nonreactive Gloria Hep-2 11/13/2015 [facility] Gloria Pattern Homogeneous N Negative [address] [place] [address] [phone] Gloria Titer 1:320 N <1:80 Gloria Reviewed By MD Luci Jernigan N 62 Hepatitis 11/13/2015 [facility] Hepatitis B Nonreactive N Nonreactive Acute Panel [address] [place] [address] [phone] Hepatitis A AB IgM Nonreactive N Nonreactive Hepatitis C Antibody Nonreactive N Nonreactive Hepatitis B Surface Antigen Nonreactive N Nonreactive Comp Metabolic Panel 11/13/2015 [facility] Sodium 131 mmol/L Low 133-[address] [place] [address] [phone] Potassium 4.4 mmol/L N 3.5-5.0 Chloride 97 mmol/L Low 101-111 Co2 Carbon Dioxide 26 mmol/L N 22-32 Anion Gap 8 mmol/L N 2-11 Glucose 230 mg/dL High 70-100 Blood Urea Nitrogen 11 mg/dL N 6-24 Creatinine 0.56 mg/dL N 0.51-0.95 BUN/Creatinine Ratio 19.6 N 8-20 Calcium 9.8 mg/dL N 8.6-10.3 Total Protein 7.4 g/dL N 6.4-8.9 Albumin 4.4 g/dL N 3.2-5.2 Globulin 3.0 g/dL N 2-4 Albumin/Globulin Ratio 1.5 N 1-3 Total Bilirubin 0.30 mg/dL N 0.2-1.0 Alkaline Phosphatase 53 U/L N 34-104 Alt 70 U/L High 7-52 Ast 64 U/L High 13-39 Egfr Non- 116.0 N >60 Egfr 149.2 N >60 63 CBC Auto Diff 11/13/2015 [facility] White Blood 6.7 10^3/uL N 3.5-10.[address] [place] [address] [phone] Red Blood Count 4.67 10^6/uL N 4.0-5.4 Hemoglobin 13.5 g/dL N 12.0-16.0 Hematocrit 40 % N 35-47 Mean Corpuscular Volume 85 fL N 80-97 Mean Corpuscular Hemoglobin 29 pg N 27-31 Mean Corpuscular HGB Conc 34 g/dL N 31-36 Red Cell Distribution Width 14 % N 10.5-15 Platelet Count 294 10^3/uL N 150-450 Mean Platelet Volume 7 um3 Low 7.4-10.4 Abs Neutrophils 4.3 10^3/uL N 1.5-7.7 Abs Lymphocytes 1.8 10^3/uL N 1.0-4.8 Abs Monocytes 0.4 10^3/uL N 0-0.8 Abs Eosinophils 0.2 10^3/uL N 0-0.6 Abs Basophils 0 10^3/uL N 0-0.2 Abs Nucleated RBC 0.02 10^3/uL N Granulocyte % 63.7 % N 38-83 Lymphocyte % 27.0 % N 25-47 Monocyte % 6.5 % N 1-9 Eosinophil % 2.4 % N 0-6 Basophil % 0.4 % N 0-2 Nucleated Red Blood Cells % 0.3 N Hla B27 11/13/2015 [facility] Hla B27 Positive N [address] [place] [address] [phone] Hla B27 Interp See Comment N 65 Laboratory 11/13/2015 [facility] Gloria Reflexed Abnormal Negative test finding [address] ([place] [address] Antibodies) [phone] C Reactive Protein 27.59 mg/L High < 5.00 66 Cyclic Citrullinated Pep Igg <15.6 U N 67 Erythrocyte Sed Rate 39 mm/Hr High 0-14 1 [id number] 2 SEE RESULT BELOW Name: HALLIE NEGRO : [address]: Cheko Quispe MD Acct: [id number] Unit: [id number] AGE: 47 Location: [facility] Re06/23/18 SEX: F Status: DEP REF SPEC: [id number] YOBANY: 06/23/181310 [facility] DR: Cheko Quispe MD REQ: [id number] RECD: 06/23/18 STATUS: FROYLAN LAWS DR: Masood Pendleton MD _ SOURCE: GAS ANTRUM SPDESC: ORDERED: Clotest COMMENTS: [id number] Procedure Result Reported Site Clotest Final 06/24/18- 55 ML Clotest Negative * ML - Main Lab . END OF REPORT DEPARTMENT OF PATHOLOGY, [address] [place] [address] Sandor Bailey M.D. Director [facility] # [id number] SEE RESULT BELOW Name: HALLIE NEGRO : [address]: Cheko Quispe MD Acct: [id number] Unit: [id number] AGE: 47 Location: [facility] Re06/23/18 SEX: F Status: DEP REF SPEC: [id number] YOBANY: 06/23/18- [facility] DR: Cheko Quispe MD REQ: [id number] RECD: 06/23/18 STATUS: RADHA LAWS DR: Masood Pendleton MD _ ORDERED: LEVEL 4, IMMUNO-FIRST COMMENTS: [id number] Addendum: An immunohistochemical stain for Helicobacter pylori-like organisms was performed with appropriate controls and is negative. Addendum Signed (signature on file) Sandor Bailey MD 1200 FINAL DIAGNOSIS Stomach, antrum, biopsy: -- Antral-type gastric mucosa with focally active gastritis and reactive chemical gastropathy; see comment. COMMENT: An H. pylori immunohistochemical stain is pending and the results will be reported in an addendum. CLINICAL HISTORY Evaluation of PPI, burning pain in left costal margin, sleep ? rough, nervous POST-OPERATIVE DIAGNOSIS EGD: larynx ? symmetrical; esophagus ? esophagogastric 36 cm, hiatal hernia 37 ? 38 cm; stomach ? antral swollen folds, no erosions, biopsy (x3), polyps; duodenum ? normal x 40 cm; conclusions: hiatal hernia; antral swollen folds; gastroesophageal reflux disease GROSS DESCRIPTION The specimen is received in formalin labeled, Biopsy Gastric Antral Thickened Fold, and consists of a 1.0 x 0.5 x 0.2 cm aggregate of lu-pink irregular soft tissue fragments which is submitted entirely in one cassette. CONTINUED ON NEXT PAGE DEPARTMENT OF PATHOLOGY, [address] [place] [address] Sandor Bailey M.D. Director [facility] # [id number] RUN DATE: 06/28/18 [facility] LAB LIVE PAGE 2 Patient: HALLIE NEGRO Elza [id number] (Continued) GROSS DESCRIPTION (Continued) Signed by and Reported on: Jaylin Jernigan MD 06/24/18 1605 END OF REPORT DEPARTMENT OF PATHOLOGY, [address] [place] [address] Sandor Bailey M.D. Director [facility] # [id number] FASTING 10 HOUR 6 Desirable: <150 Borderline High: 150-199 High: 200-499 Very High: >500 7 Desirable: <200 Borderline High: 200-239 High: >239 8 Low: <40 Desirable: 40-60 High: >60 9 Desirable: <100 Near Optimal: 100-129 Borderline High: 130-159 High: 160-189 Very High: >189 10 SEE RESULT BELOW Name: HALLIE NEGRO : [address]: Masood Pendleton MD Acct: [id number] Unit: [id number] AGE: 47 Location: [facility] Re04/02/18 SEX: F Status: REG REF SPEC: [id number] YOBANY: 04/02/[address]: Masood Pendleton MD REQ: [id number] RECD: 04/02/18 STATUS: COMP _ SOURCE: STOOL SPDESC: ORDERED: Stool Culture, Giardia Antigen COMMENTS: Unable to Perform Shiga Toxin Testing. Insufficient Growth of Enteric Bacteria. Procedure Result Reported Site Stool Culture Final 04/04/18- 1255 ML Result No enteric pathogens isolated No growth of normal enteric renu Testing for Salmonella, Shigella, Aeromonas, Plesiomonas, Yersinia and Campylobacter are included in a Stool Culture. Vibrio spp not routinely tested for in a stool culture. If testing is desired, please request specifically when placing test order. Sensitivities not routinely performed on stool isolates, as antibiotics may prolong the carriage rate of bacteria. Please contact the microbiology lab if sensitivities are required. Stool Specimen Description Final 04/02/18- 1434 ML Stool Color Brown Stool Form Nonformed Stool Consistency Soft Shiga Toxin 1 2 Final 04/05/18- 0916 ML Test not performed Giardia Antigen Screen Final 04/05/18- 1001 ML Organism 1 Negative Giardia CONTINUED ON NEXT PAGE DEPARTMENT OF PATHOLOGY, [address] [address] Sandor Bailey M.D. Director [facility] # [id number] Patient: HALLIE NEGRO [id number] (Continued) Specimen: [id number] Collected: 04/02/18 Received: 04/02/18-1399 (Continued) Procedure Result Reported Site Giardia Antigen Screen Final (continued) 04/05/18- 1001 Giardia antigen testing performed by enzyme immunoassay. If patient is immunocompromised or has traveled to or is from a developing country, a full ova and parasite exam with microscopic (OPMIC) is recommended. All samples will be held one month in case full ova and parasite testing is requested. Contact the Microbiology Department at [phone]. TEST LIMITATIONS: As with all diagnostic procedures, the results obtained should be used in conjunction with other clinical information available the physician, including confirmation by another method. Negative results can occur in samples containing antigen below lower limits of detection of the assay. One negative specimen does not rule out the possibility of a parasitic infection. To improve detection it is recommended that three specimens be collected on separate days over a period of not more than seven days. The use of colonic washes, aspirates or other diluted sample types has not been established and could affect the performance of the assay. Stool samples contaminated with an oily or particulate base (eg. Barium, mineral oil etc.) could interfere with the test and are not recommended. * ML - [facility] . END OF REPORT DEPARTMENT OF PATHOLOGY, [address] [address] Sandor Bailey M.D. Director [facility] # [id number] 11 Test Performed by: [facility] - [address] [address] 12 Because ethnic data is not always readily available, this report includes an eGFR for both -Americans and non- Americans. The National Kidney Disease Education Program (NKDEP) does not endorse the use of the MDRD equation for patients that are not between the ages of 18 and 70, are , have extremes of body size, muscle mass, or nutritional status, or are non- or non-. According to the National Kidney Foundation, irrespective of diagnosis, the stage of the disease is based on the level of kidney function: Stage Description GFR(mL/min/1.73 m(2)) 1 Kidney damage with normal or decreased GFR 90 2 Kidney damage with mild decrease in GFR 60-89 3 Moderate decrease in GFR 30-59 4 Severe decrease in GFR 15-29 5 Kidney failure <15 (or dialysis) 13 Desirable: <150 Borderline High: 150-199 High: 200-499 Very High: >500 14 Desirable: <200 Borderline High: 200-239 High: >239 15 Low: <40 Desirable: 40-60 High: >60 16 Desirable: <100 Near Optimal: 100-129 Borderline High: 130-159 High: 160-189 Very High: >189 17 Acute inflammation: >10.00 18 Please check labs this week 19 ADDITIONAL INFORMATION This test was developed and its performance characteristics determined by [facility] in a manner consistent with CLIA requirements. This test has not been cleared or approved by the U.S. Food and Drug Administration. Test Performed by: [facility] [address] [place] [address] 20 Because ethnic data is not always readily available, this report includes an eGFR for both -Americans and non- Americans. The National Kidney Disease Education Program (NKDEP) does not endorse the use of the MDRD equation for patients that are not between the ages of 18 and 70, are , have extremes of body size, muscle mass, or nutritional status, or are non- or non-. According to the National Kidney Foundation, irrespective of diagnosis, the stage of the disease is based on the level of kidney function: Stage Description GFR(mL/min/1.73 m(2)) 1 Kidney damage with normal or decreased GFR 90 2 Kidney damage with mild decrease in GFR 60-89 3 Moderate decrease in GFR 30-59 4 Severe decrease in GFR 15-29 5 Kidney failure <15 (or dialysis) 21 Acute inflammation: >10.00 22 Please check labs this week 23 REFERENCE VALUE <4.0 (Negative) Test Performed by: [place] [address] 24 Negative serology. Celiac disease unlikely. However, approximately 10% of patients with celiac disease are seronegative. Also, patients who are already adhering to a gluten-free diet may be seronegative. If celiac disease is highly clinically suspected, consider HLA-DQ typing. Test Performed by: [place] [address] 25 RESULT: 01:03,05 REFERENCE VALUE Not Applicable 26 RESULT: 03:01,06:03 DQ Serologic Equivalent: 7,6 REFERENCE VALUE Not Applicable 27 The absence of HLA celiac permissive genes would make the presence of celiac disease unlikely. ADDITIONAL INFORMATION Method: Molecular typing of HLA antigens performed using reverse SSOP and/or SSP methods, reported as serological equivalents and low to medium resolution molecular values. Performing Laboratory CLIA# [id number] Test Performed by: [facility] - [address] [address] 28 Serologic response to B. burgdorferi infection is not detected, but cannot rule out early infection during which low or undetectable antibody levels to B. burgdorferi may be present. If clinically indicated, a new serum specimen should be submitted in 7-14 days. Test Performed by: [facility] - [address] [address] 29 Because ethnic data is not always readily available, this report includes an eGFR for both -Americans and non- Americans. The National Kidney Disease Education Program (NKDEP) does not endorse the use of the MDRD equation for patients that are not between the ages of 18 and 70, are , have extremes of body size, muscle mass, or nutritional status, or are non- or non-. According to the National Kidney Foundation, irrespective of diagnosis, the stage of the disease is based on the level of kidney function: Stage Description GFR(mL/min/1.73 m(2)) 1 Kidney damage with normal or decreased GFR 90 2 Kidney damage with mild decrease in GFR 60-89 3 Moderate decrease in GFR 30-59 4 Severe decrease in GFR 15-29 5 Kidney failure <15 (or dialysis) 30 Please check labs this week 31 Interpretation: Weak Positive (1.1-2.9) REFERENCE VALUE <=1.0 (Negative) 32 REFERENCE VALUE <20.0 (Negative) 33 Tests for antibodies to dsDNA and HAZEL antigens are not performed automatically unless the GLORIA result is > or= 3.0 U. Studies performed at [facility] indicate that positive GLORIA results <3.0 U are rarely accompanied by positive second order tests. Test Performed by: [facility] - [facility] [address] [place] [address] 34 ADDITIONAL INFORMATION This test was developed using an analyte specific reagent. Its performance characteristics were determined by [facility] in a manner consistent with CLIA requirements. This test has not been cleared or approved by the U.S. Food and Drug Administration. Test Performed by: [facility] - [address] [address] 35 REFERENCE VALUE <4.0 (Negative) Test Performed by: [address] [address] 36 Negative serology. Celiac disease unlikely. However, approximately 10% of patients with celiac disease are seronegative. Also, patients who are already adhering to a gluten-free diet may be seronegative. If celiac disease is highly clinically suspected, consider HLA-DQ typing. Test Performed by: [address] [address] 37 Interpretation: Weak Positive (1.1-2.9) REFERENCE VALUE <=1.0 (Negative) 38 REFERENCE VALUE <20.0 (Negative) 39 Tests for antibodies to dsDNA and HAZEL antigens are not performed automatically unless the GLORIA result is > or= 3.0 U. Studies performed at [facility] indicate that positive GLORIA results <3.0 U are rarely accompanied by positive second order tests. Test Performed by: [facility] - [address] [address] 40 ADDITIONAL INFORMATION This test was developed using an analyte specific reagent. Its performance characteristics were determined by [facility] in a manner consistent with CLIA requirements. This test has not been cleared or approved by the U.S. Food and Drug Administration. Test Performed by: [facility] [place] [address] 41 Serologic response to B. burgdorferi infection is not detected, but cannot rule out early infection during which low or undetectable antibody levels to B. burgdorferi may be present. If clinically indicated, a new serum specimen should be submitted in 7-14 days. Test Performed by: [facility] [place] [address] 42 RESULT: 01:03,05 REFERENCE VALUE Not Applicable 43 RESULT: 03:01,06:03 DQ Serologic Equivalent: 7,6 REFERENCE VALUE Not Applicable 44 The absence of HLA celiac permissive genes would make the presence of celiac disease unlikely. ADDITIONAL INFORMATION Method: Molecular typing of HLA antigens performed using reverse SSOP and/or SSP methods, reported as serological equivalents and low to medium resolution molecular values. Performing Laboratory CLIA# [id number] Test Performed by: [facility] [place] [address] 45 Test Performed by: [place] [address] 46 Please check labs today 47 Acute inflammation: >10.00 48 Please check labs today 49 Because ethnic data is not always readily available, this report includes an eGFR for both -Americans and non- Americans. The National Kidney Disease Education Program (NKDEP) does not endorse the use of the MDRD equation for patients that are not between the ages of 18 and 70, are , have extremes of body size, muscle mass, or nutritional status, or are non- or non-. According to the National Kidney Foundation, irrespective of diagnosis, the stage of the disease is based on the level of kidney function: Stage Description GFR(mL/min/1.73 m(2)) 1 Kidney damage with normal or decreased GFR 90 2 Kidney damage with mild decrease in GFR 60-89 3 Moderate decrease in GFR 30-59 4 Severe decrease in GFR 15-29 5 Kidney failure <15 (or dialysis) 50 Serologic response to B. burgdorferi infection is not detected, but cannot rule out early infection during which low or undetectable antibody levels to B. burgdorferi may be present. If clinically indicated, a new serum specimen should be submitted in 7-14 days. Test Performed by: [place] [address] Hand Button Splitter: Sam Marinelli II, M.D., Ph.D. 51 Acute inflammation: >10.00 52 this week please 53 Because ethnic data is not always readily available, this report includes an eGFR for both -Americans and non- Americans. The National Kidney Disease Education Program (NKDEP) does not endorse the use of the MDRD equation for patients that are not between the ages of 18 and 70, are , have extremes of body size, muscle mass, or nutritional status, or are non- or non-. According to the National Kidney Foundation, irrespective of diagnosis, the stage of the disease is based on the level of kidney function: Stage Description GFR(mL/min/1.73 m(2)) 1 Kidney damage with normal or decreased GFR 90 2 Kidney damage with mild decrease in GFR 60-89 3 Moderate decrease in GFR 30-59 4 Severe decrease in GFR 15-29 5 Kidney failure <15 (or dialysis) 54 ADDITIONAL INFORMATION This is a qualitative test. The TB antigen IU/mL value is required for documentation on certain government reporting forms (e.g., Form I-693), but this value should not be used to monitor disease progression or response to therapy. Diagnosing or excluding tuberculosis disease, and assessing the probability of LTBI, require a combination of epidemiological, historical, medical, and diagnostic findings that should be taken into account when interpreting QuantiFERON-TB results. Test Performed by: [place] [address] Hand Button Splitter: Sam Marinelli II, M.D., Ph.D. 55 Test Performed by: [place] [address] Hand Button Splitter: Sam Marinelli II, M.D., Ph.D. 56 Test Performed by: [place] [address] Hand Button Splitter: Sam Marinelli II, M.D., Ph.D. 57 REFERENCE VALUE <10.0 (Negative) 58 REFERENCE VALUE <10.0 (Negative) Test Performed by: [place] [address] Hand Button Splitter: Sam Marinelli II, M.D., Ph.D. 59 this week please 60 The above HAZEL screen is designed for the detection of antibodies to extractable nuclear antigen (HAZEL) in human serum. It is a combination test for the detection of antibodies to SEWER INSPECTOR, Sm, SS-A (Ro), and SS-B (La) nuclear antigens. 61 this week please 62 Luci Jernigan 63 Because ethnic data is not always readily available, this report includes an eGFR for both -Americans and non- Americans. The National Kidney Disease Education Program (NKDEP) does not endorse the use of the MDRD equation for patients that are not between the ages of 18 and 70, are , have extremes of body size, muscle mass, or nutritional status, or are non- or non-. According to the National Kidney Foundation, irrespective of diagnosis, the stage of the disease is based on the level of kidney function: Stage Description GFR(mL/min/1.73 m(2)) 1 Kidney damage with normal or decreased GFR 90 2 Kidney damage with mild decrease in GFR 60-89 3 Moderate decrease in GFR 30-59 4 Severe decrease in GFR 15-29 5 Kidney failure <15 (or dialysis) 64 REFERENCE VALUE Not Applicable 65 HLA-B27 antigen was detected. Approximately 8% of the normal population carries the HLA-B27 antigen. HLA-B27 is present in approximately 89% of patients with ankylosing spondylitis, 79% of patients with Riana's syndrome and 42% of patients with juvenile rheumatoid arthritis. However, lacking other data, it is not diagnostic for these disorders. This test does not differentiate B27 alleles. i.e. B*27:05, B*27:06, etc. ADDITIONAL INFORMATION Method: Flow Cytometry Performing Laboratory CLIA# [id number] Test Performed by: [place] [address] Hand Button Splitter: Sam Marinelli II, M.D., Ph.D. 66 Acute inflammation: >10.00 67 REFERENCE VALUE <20.0 (Negative) Test Performed by: [place] [address] Hand Button Splitter: Sam Marinelli II, M.D., Ph.D. Procedures Date Code Description Status 10/27/2018 78303 EKG Tracing & Interpretation Completed 07/20/2018 65990819 Mammogram Completed 06/23/2018 22060 Endoscopy Upper GI Biopsy Completed 05/05/2018 97687 Inject/Drain Joint/Bursa Major W/O US Completed 05/05/2018 Inject/Drain Joint/Bursa Intermediate W/O US Completed 08/18/2016 Inject/Drain Joint/Bursa Major W/O US Completed 10/24/2014 42556 Nerve Conduction 07-08 Studies Completed 01/02/2011 79733 Arthroscopy,Knee,Meniscectomy Medial Or Lateral Completed 01/02/2011 47078 Arthroscopy,Knee,Meniscectomy Medial Or Lateral Completed 12/25/2010 81202 Rad Exam; Knee, Ap&L Completed 12/25/2010 22024 Rad Exam; Knee, Ap&L Completed 12/11/2010 72759 Xray Knee 3 Views Completed 08/22/2009 80083 Rad Exam; Tib-Fib Completed 08/01/2009 07684 Rad Exam; Tib-Fib Completed 07/11/2009 96826 Closed TX Prox/Shaft Fibula W/O Manip Completed 05/07/2009 93628 Stress ECHO Interpretation/Report Hospital Completed 05/07/2009 36222 Treadmill Interp/Report Only Completed 05/07/2009 67570 Stress Test Supervsn W/Out I/R Completed Encounters Type Date Location Provider Dx Diagnosis Office Visit 09/29/2018 [facility] Internal Kimberly Poole MD E11.9 Type 2 diabetes 10:40a Medicine - mellitus without [place] complications F33.0 Major depressive disorder, recurrent, mild E78.2 Mixed hyperlipidemia E66.9 Obesity, unspecified E55.9 Vitamin D deficiency, unspecified Office Visit 07/28/2018 Orthopedic Oumar Hernandez, M17.11 Unilateral primary 9:00a Services Of M.D. osteoarthritis, right C.M.A. knee M21.161 Varus deformity, not elsewhere classified, right knee Office Visit 07/21/2018 1:40p [facility] Internal Masood Pendleton, M25.561 Pain in Medicine - M.D. right knee [place] E11.9 Type 2 diabetes mellitus without complications K21.9 Gastro-esophageal reflux disease without esophagitis E55.9 Vitamin D deficiency, unspecified Z23 Encounter for immunization Office 07/05/2018 [facility] Gastroenterology Annalise K21.0 Gastro-esophageal Visit 1:00p TINA Urias reflux disease with esophagitis K29.70 Gastritis, unspecified, without bleeding L40.50 Arthropathic psoriasis, unspecified Office 06/07/2018 [facility] Gastroenterology Cheko Nunez K21.0 Gastro-esophageal Visit 2:45p MD Jose Enrique reflux disease with esophagitis E11.9 Type 2 diabetes mellitus without complications R63.5 Abnormal weight gain K58.8 Other irritable bowel syndrome Office Visit 04/06/2018 1:00p [facility] Internal Masood E11.9 Type 2 diabetes Emi Pendleton M.D. 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 mellitus without [address] complications K21.9 Gastro-esophageal reflux disease without esophagitis N39.3 Stress incontinence (female) (male) F33.0 Major depressive disorder, recurrent, mild R19.7 Diarrhea, unspecified Office Visit 01/06/2018 8:20a Rheumatology Rei L40.53 [facility] M.D. spondylitis M17.11 Unilateral primary osteoarthritis, right knee Z79.899 Other rn long term care (current) drug therapy M25.461 Effusion, right knee Office Visit 01/21/2017 2:00p Rheumatology Rei L40.53 [facility] Mariajose Melendez spondylitis M71.21 Synovial cyst of popliteal space [[place]], right knee L30.9 Dermatitis, unspecified Z79.899 Other fdc (current) drug therapy F17.210 Nicotine dependence, cigarettes, uncomplicated Office Visit 12/10/2016 11:00a [facility] Services Yaz Mehta, M25.561 Pain in right Of [facility] M.D. knee M17.11 Unilateral primary osteoarthritis, right knee M25.461 Effusion, right knee M25.571 Pain in right ankle and joints of right foot S93.401D Sprain of unspecified ligament of right ankle, subs encntr M71.21 Synovial cyst of popliteal space [[place]], right knee Office Visit 11/19/2016 11:15a Orthopedic Services Yaz Mehta, M25.561 Pain in right Of [facility] M.D. knee M17.11 Unilateral primary osteoarthritis, right knee M25.461 Effusion, right knee S83.411A Sprain of medial collateral ligament of right knee, init Office Visit 08/18/2016 10:00a Orthopedic Services Yaz Mehta, M25.561 Pain in right Of C.[facility]. M.D. knee M17.11 Unilateral primary osteoarthritis, right knee M25.461 Effusion, right knee M25.571 Pain in right ankle and joints of right foot M19.071 Primary osteoarthritis, right ankle and foot Office Visit 07/08/2016 8:40a Rheumatology Rei L40.53 [facility] M.D. spondylitis L40.59 Other psoriatic arthropathy M79.1 Myalgia R74.8 Abnormal levels of other serum enzymes M25.561 Pain in right knee M25.571 Pain in right ankle and joints of right foot Z79.899 Other fdc (current) drug therapy Office Visit 06/13/2016 11:00a Rheumatology Rei L40.59 Other psoriatic [facility] Melendez M.D. arthropathy Z79.899 Other fdc (current) drug therapy L40.53 Psoriatic spondylitis M79.1 Myalgia Z23 Encounter for immunization Office Visit 05/19/2016 11:00a Rheumatology Terry Celaya Z11.2 Encounter for Services Of [employer] screening for [employer] other bacterial diseases L40.59 Other psoriatic arthropathy F43.23 Adjustment disorder with mixed anxiety and depressed mood Z79.899 Other rn long term care (current) drug therapy N95.1 Menopausal and female climacteric states Office Visit 02/20/2016 2:00p Rheumatology Rei L40.53 [facility] M.D. spondylitis Z79.899 Other rn long term care (current) drug therapy M17.9 Osteoarthritis of knee, unspecified R74.0 Nonspec elev of levels of transamns & lactic acid dehydrgnse E78.1 Pure hyperglyceridemia Office Visit 01/22/2016 10:00a Rheumatology Nurse Visit L40.53 [facility] RH spondylitis Office Visit 12/12/2015 9:00a Rheumatology Rei L40.53 [facility] Mariajose Melendez spondylitis Z79.899 Other rn long term care (current) drug therapy M17.9 Osteoarthritis of knee, unspecified E04.1 Nontoxic single thyroid nodule R76.0 Raised antibody titer R74.0 Nonspec elev of levels of transamns & lactic acid dehydrgnse Z23 Encounter for immunization Office Visit 11/13/2015 Rheumatology Rei 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 Cartilage Or Meniscus Curren 715.96 Osteoarthrosis Unspec Genlzd Or Localized Lower Leg 716.96 Arthropathy Unspec Lower Leg Office Visit 12/11/2010 3:30p Orthopedic Fidel Wood 924.11 Contusion Knee Services Of Xiomara MedinaMLilly Harkins Plan of Treatment Future Appointment(s):11/09/2018 7:30 am - AGNES Catherine at [facility]12/29/2018 11:00 am - Masood Pendleton M.D. at [facility] Internal Medicine - Pvppxjavf48/19/2019 7:30 am - Oumar Hernandez M.D. at [facility]10/27/2018 - Kimberly Poole MDZ01.818 Encounter for other preprocedural teeenxhzbrbV16.9 Type 2 diabetes mellitus without complications
[2018-11-09] MEDS ORDERED: Lactated Ringers 1000 ML Bag* 1,000 ML IV SCH (06:00)
[2018-11-09] MEDS ORDERED: fentaNYL* 50 MCG/ML 2 ML VIAL (100 MCG VIAL) ONE (06:36)
[2018-11-09] MEDS ORDERED: Midazolam* 1 MG/ML 2 ML VIAL (2 MG) ONE (06:36)
[2018-11-09] MEDS ORDERED: Lidocaine 2% PF * 5 ML VIAL ONE ×2 (06:36→06:38)
[2018-11-09] MEDS ORDERED: Propofol* 10 MG/ML 20 ML BTL ONE (06:36)
[2018-11-09] MEDS ORDERED: Dexmedetomidine* 200 MCG/2 ML 2 ML VIAL ONE (06:42)
[2018-11-09] MEDS ORDERED: Clindamycin 900 MG/D5W BAG(*) 900 MG/50 ML BAG IVPB ONE (06:44)
[2018-11-09] MEDS ORDERED: ROPIVACAINE 5 MG/ML 30 ML BTL (0.5%) ONE ×2 (06:55→08:15)
[2018-11-09] MEDS ORDERED: Bupivacaine 0.5% W/EPI SDV* 30 ML VIAL ONE (06:57)
[2018-11-09] MEDS ORDERED: Rocuronium* 10 MG/ML VIAL ONE ×2 (08:31→09:26)
[2018-11-09] MEDS ORDERED: EPHEDrine (Pressors)* 50 MG/ML VIAL ONE (08:51)
[2018-11-09] MEDS ORDERED: KETAMINE HCL* 50 MG/ML 10 ML VIAL ONE (08:52)
[2018-11-09] MEDS ORDERED: Ketorolac INJ* 30 MG/ML 1 ML VIAL ONE (09:28)
[2018-11-09] MEDS ORDERED: Dexamethasone IV* 4 MG/ML 1 ML (4 MG) ONE (09:28)
[2018-11-09] MEDS ORDERED: Metoclopramide IV* 5 MG/ML 2 ML VIAL ONE (09:28)
[2018-11-09] MEDS ORDERED: Ondansetron INJ* 2 MG/ML VIAL ONE (09:28)
[2018-11-09] MEDS ORDERED: Acetaminophen IV 1GM/100ML * 1,000 MG/100 ML VIAL IVPB ONE (11:01)
[2018-11-09] MEDS ORDERED: Naloxone* 0.4 MG/ML 1 ML VIAL IV PRN (11:01)
[2018-11-09] MEDS ORDERED: DiMENhydriNATE IV* 50 MG/ML VIAL IV PUSH PRN (11:01)
[2018-11-09] MEDS ORDERED: HYDROmorphone INJ1* 1 MG/ML SYRINGE ONE ×2 (11:13→12:09)
[2018-11-09] MEDS ORDERED: Glycopyrrolate IV* 0.2 MG/ML 1 ML VIAL ONE (11:16)
[2018-11-09] MEDS ORDERED: Neostigmine Methylsulfate* 1 MG/ML 10 ML VIAL (1 mg/ml) ONE (11:16)
[2018-11-09] MEDS ORDERED: diPHENhydraMINE IV* 50 MG/ML 1 ml VIAL (BENADRYL) IV PRN (11:45)
[2018-11-09] MEDS ORDERED: oxyCODONE/Acetamin 5/325 MG* TAB PO PRN (11:45)
[2018-11-09] MEDS ORDERED: Morphine VIAL* 4 MG/ML VIAL (1 ml vial) IV PRN (11:45)
[2018-11-09] MEDS ORDERED: Magnesium Hydroxide LIQ* 30 ML UDC PO PRN (11:45)
[2018-11-09] MEDS ORDERED: diPHENhydraMINE PO* 25 MG PO PRN (11:45)
[2018-11-09] MEDS ORDERED: Acetaminophen IV 1GM/100ML * 100 ML ONE (11:51)
[2018-11-09] MEDS: HYDROmorphone INJ1* 1 MG/ML SYRINGE IV PRN ×2 (12:13→12:32)
[2018-11-09] MEDS ORDERED: oxyCODONE SR TAB(*) 10 MG TAB.SR PO ONE (12:38)
[2018-11-09] MEDS ORDERED: oxyCODONE SR TAB(*) 10 MG TAB.SR ONE (12:56)
--- NOTE | 2018-11-09 13:56 | OP ---
CC: Dr. Poole, one of the new Internal Medicine doctors at [facility]. OPERATIVE REPORT: DATE OF OPERATION: 11/09/18 DATE OF : 66 SURGICAL CARE: Right knee. SURGEON: Oumar Hernandez MD ASSISTANTS: 1. SOFIA Catherine 2. TRUDY Chris ANESTHESIOLOGIST: Dr. Roberson. ANESTHESIA: A right thigh adductor canal block and endotracheal tube general. PRE-OP DIAGNOSIS: Severe arthritis of the right knee. POST-OP DIAGNOSIS: Severe arthritis of the right knee. OPERATIVE PROCEDURE: Right total knee replacement. OPERATIVE INDICATIONS: Persistent right knee severe pain and disability and severe arthritis. The p atient the knee replacement last year with Dr. Welch at the [facility]. COMPONENTS UTILIZED: Carine Persona knee, a size 5 femur, a size 32 patella, a size D tibia, and a 1 0 articular surface. COMPLICATIONS: There were no complications. DRAINS: Two drains right knee at the end of the case. ESTIMATED BLOOD LOSS: 200 mL. REPLACEMENT: Crystalloid fluids. DESCRIPTION OF PROCEDURE: The patient was carefully evaluated in the holding area and Dr. Roberson pr oceeded with a right thigh block in the holding area, then she was brought into the operating room. The general anesthetic was then administered with insertion of an endotracheal tube. A Lynn cathete r was carefully inserted. The right proximal thigh was wrapped with a tourniquet. The right dorsalis pedis pulse was noted to be 2+. The knee had some flexion contracture. The right leg was wrapped w ith a proximal thigh tourniquet and the leg was given a preliminary chlorhexidine prep and then a fin al ChloraPrep from the tourniquet to the tips of the toes. After prepping, draping, and sealing off, we did our universal protocol time-out confirming Hallie Manuel and a plan for right total knee replacement. We all agreed and we proceeded. The skin incision went from the medial aspect of the ti bial tubercle to 2 fingerbreadths proximal to the superior pole of the patella. The tourniquet was n ot utilized until the clean up and cementing phase of this case. Careful hemostasis checked and achi eved utilizing electrocautery. Skin and subcu were divided. The prepatellar bursa was traversed and the knee was entered medial parapatellar. The knee had abundant clear straw-colored synovial fluid. On the tibia, the anteromedial soft tissues were divided down to the bone 2 cm medial to the tibial tubercle then up to the joint line medial parapatellar incision and then the quad mechanism divided at the junction of the rectus femoris and the vastus medialis staying as close to the vastus medialis , but in the tendon as possible going 3 to 4 cm proximal to the superior pole of the patella. The pa tella was made so that it could be everted. The anteromedial soft tissues on the tibia were uplifted subperiosteally going around to the deep MCL and then to the posteromedial corner of the knee to eff ect some medial release. The remains of the anterior horn medial meniscus were carefully excised. T he MCL was carefully preserved throughout the case. Parapatellar synovectomy was completed including the fat pad leaving some fat on the deep side of the patellar tendon and preserving the patellar ten don throughout. The intercondylar osteophytes were removed from the medial femoral condyle, medial t ibial plateau, complete eburnation of bone and osteophytes, patellar osteophytes as well. The distal anterior femur was exposed subperiosteally for referencing and measuring. Synovectomy was completed superiorly. The lateral meniscus was carefully excised and careful hemostasis at its periphery in t he region of the lateral geniculate. The ACL and PCL were uplifted from their femoral origins. The tibia was made so that it could be subluxated forward from under the femur and working posteriorly we were very careful to achieve careful hemostasis especially when posterior to the PCL. The proximal tibial cut was made first. Our goal here was to have a tibial surface that would be perpendicular to the long axis of the tibia and have a slight posterior slope. We wanted to remove a few millimeters of bone on the medial side and a centimeter to 12 mm on the lateral side. The femoral intramedullar y drill was utilized. The femoral intramedullary canal was suctioned to discourage any embolization. The distal femoral cutting guide was inserted with 6 degrees of valgus and 1 for the flexion contra cture and the distal femoral cut was carefully completed. The extension gap was very satisfactory in full extension with a 10-mm block. The femur was measured for a size 5. The anterior, posterior, a nd chamfering cuts were completed. We then completed our posterior release, posterior removal of lat eral meniscus and medial meniscus, removal of osteophytes from the medial and lateral femoral condyle s. At this stage, we had nice ligamentous balance in 90 degrees of flexion with a 10-mm block and in extension. The femur was completed with the intercondylar cut out. Anchoring holes were made. The tibia was completed for a size D. The knee was articulated and extended with a D tibia, 10 articula r surface and the 5 femur with full knee extension, stable ligaments in extension and stable ligament s in 90 degrees of flexion. The patella was then cut flat. A 32 was chosen. Three drill holes were made and these were undercut . A lateral release was not necessary. The femoral canal was cleaned x6 with saline, suctioned empt y, and a bone plug was inserted. The leg was then exsanguinated, the tourniquet elevated to 275. The knee was cleaned up entirely in extension. The knee was then flexed. Retractors were put into place and all the bony surfaces were cleaned with pulse saline in flexion. All surfaces were dried. The cement was mixed and the componen ts were cemented into position, patella followed by tibia, followed by femur. Each was impacted. Exc ess cement was removed and the knee was articulated and extended during the final hardening. The kacey rniquet was deflated. Hemostasis was checked and achieved utilized electrocautery. The posteromedia l pericapsular tissues were infiltrated with 0.5% Marcaine with epinephrine 15 mL and another 15 mL m edially and laterally. We irrigated several times during the closure with pulsed saline and 2 drains were brought out through superolateral suprapatellar pouch. The quad tendon/quad mechanism closed wi th interrupted #1 Vicryl in a [id number] fashion down through the medial retinaculum, more dista lly we used 0 Vicryl. Deep subcu and bursa closed with 0 Vicryl [id number] and then the superfi cial subcu closed with 3-0 Vicryl and the skin closed with dayana. The skin was washed and dried an d covered with Betadine-soaked release followed by sterile gauze. The drains were brought out supero laterally, they were dressed the same way, and then a cryotherapy cuff, ABD pads, and a 6-inch Corey ba ndage loosely applied. The knee was flexed and extended 5 to 6 times during flexion. The flexion was well past 125 degrees, knee extension was full with stable ligaments. The dorsalis pedis pulse was 2+ at the end of the case. The patient was returned to the hospital stretcher into the recovery room in stable and satisfactory condition, having tolerated the procedure very well. [id number]/[facility] #: [id number]
[2018-11-09] MEDS: glipiZIDE TAB.XL* 5 MG PO SCH ×2 (14:41→21:48)
[2018-11-09] MEDS: oxyCODONE TAB* 5 MG TAB PO PRN ×3 (14:41→23:40)
[2018-11-09] MEDS: Lactated Ringers 1000 ML Bag* 1,000 ML IV SCH (14:44)
[2018-11-09] MEDS: oxyCODONE/Acetamin 5/325 MG* TAB PO PRN ×2 (16:19→21:49)
[2018-11-09] MEDS ORDERED: Clindamycin 600 MG IVPREMIX(* 600 MG/50 ML SDV IV SCH (17:00)
[2018-11-09] MEDS ORDERED: Dextrose 50% Syringe 50 ML* 25 GM/50 ML SYRINGE IV PUSH PRN (17:31)
[2018-11-09] MEDS: Ondansetron INJ* 2 MG/ML VIAL IV PRN (18:20)
--- NOTE | 2018-11-09 19:28 | CONS ---
CC: Dr. Masood Pendleton; Dr. Oumar Hernandez * [facility] MEDICINE CONSULTATION: DATE OF CONSULT: 11/09/18 PRIMARY CARE PROVIDER: Dr. Masood Pendleton. REQUESTING PHYSICIAN IN CONSULT: Dr. Oumar Hernandez. ATTENDING PHYSICIAN: Dr. Je Mcclain (dictated by Loreto Whitaker NP). REASON FOR CONSULT: Co-medical management. HISTORY OF PRESENT ILLNESS: I will refer you to the history and physical by Dr. Hernandez for complete details, but in short, Ms. Jackson is a 48-year-old female with past medical history of diabetes, depression and GERD, who presented to [facility] today for an elective right total knee. The patient has had severe knee arthritis and pain for multiple years, although initially was unable to have surgery due to an elevated A1c. She reports being diagnosed with diabetes approximately 5 years ago and since that time has lost approximately 40 pounds. She reports her last A1c was 7.4%. She does check her blood glucose daily in the morning and it is typically 120 to 140. She has done well on glipizide and Januvia and has never required any insulin. PAST MEDICAL HISTORY: 1. Diabetes mellitus type 2. 2. Depression. 3. GERD. PAST SURGICAL HISTORY: 1. Partial hysterectomy. 2. Right total knee arthroplasty. HOME MEDICATIONS: 1. Betamethasone 0.1% one application topically daily. 2. Vitamin D3 2000 units p.o. daily. 3. Apple cider vinegar 450 mg p.o. b.i.d. 4. Ferrous sulfate 325 mg p.o. daily. 5. Glipizide 10 mg p.o. t.i.d. 6. Ibuprofen 600 mg p.o. q.12 hours p.r.n. 7. Magnesium citrate 100 mg p.o. b.i.d. 8. Milk thistle 175 mg p.o. daily. 9. Multivitamin 1 tab p.o. daily. 10. Fish oil 1000 mg p.o. b.i.d. 11. Pantoprazole 40 mg p.o. daily. 12. Sertraline 100 mg p.o. daily. 13. Sitagliptin 100 mg p.o. daily. 14. Triamcinolone 0.5% one application topically daily. ALLERGIES: METFORMIN and AMOXICILLIN. FAMILY HISTORY: The patient reports a strong family history of diabetes with both mom, dad, and paternal grandmother all having diabetes. She reports heart disease on her father's side. SOCIAL HISTORY: The patient consumes approximately 8 to 10 alcoholic drinks per week. She smokes approximately 1 to 2 packs of cigarettes per week. She lives at home with her . REVIEW OF SYSTEMS: An 11-point review of systems was performed and all the pertinent positive and negative findings are in the HPI. All other systems are negative. PHYSICAL EXAM: General: Ms. Jackson is a well-developed, well-nourished, overweight woman, sitting in bed, in no acute distress. She appears her stated age. Vital Signs: Temp 97.5, heart rate 88, respiratory rate 20, oxygen saturation 98% on room air, blood pressure 132/71. HEENT: Head is atraumatic, normocephalic. Visual topete are grossly intact. Pupils are equal, round, reactive to light and accommodation. Oral mucous membranes are moist and without lesions. Neck: Full range of motion. Respiratory: Symmetrical chest expansion. No chest wall deformities. Lungs: Clear to auscultation throughout. No rhonchi, wheezes, or rales. Cardiovascular: Regular rate and rhythm. S1, S2 present. No murmurs, rubs, or gallops. No JVD. Extremities: Skin warm and smooth bilaterally. No edema. No clubbing or cyanosis. Pedal pulses 2+ bilaterally. Abdomen: Soft, nontender to palpation. Bowel sounds normoactive throughout. Neuro: Awake, alert, and oriented x4. Cranial nerves II through XII grossly intact. Moves all extremities. Skin: There is a surgical dressing intact to the right knee. DIAGNOSTIC STUDIES/LAB DATA: The patient had lab work done on 11/01/18. WBC 5.6, RBC 4.65, hemoglobin 14.1, hematocrit 41, platelets 306. INR 0.84. Sodium 137, potassium 4.4, chloride 102, carbon dioxide 27, BUN 13, creatinine 0.59, glucose 114. ASSESSMENT AND PLAN: Ms. Jackson is a 48-year-old female with past medical history of diabetes, depression and gastroesophageal reflux disease, who presented to [facility] today for an elective right total knee with Dr. Hernandez. The patient has been admitted inpatient for: 1. Right total knee arthroplasty. Management per Ortho. 2. Diabetes. The patient can continue her glipizide and Januvia, although Januvia is nonformulary, so it is unclear if we will be able to provide that. I have ordered blood glucose monitoring a.c. and I have added lispro sliding scale for coverage. When reviewing preop clearance by the patient's PCP, it appears as though the patient recently stopped taking losartan, which she may have been taking for renal protection. It is not clear why she was taken off of this, but I will not restart it at this point. 3. Gastroesophageal reflux disease. Continue pantoprazole. 4. Depression. Continue sertraline. 5. Code status: The patient will be a full code. 6. DVT prophylaxis: Per Ortho. Thank you for this consultation. Hospital Medicine will continue to follow distantly. Please do not hesitate to call with any questions or concerns. TIME SPENT: Approximately 45 minutes was spent on this consultation, greater than half of that time spent [id number] with the patient obtaining my history , performing my physical exam, and reviewing the plan of care. This case has been reviewed with my attending, Dr. Mcclain, who is in agreement with the plan of care. LORETO WHITAKER, CLAY CASTER [id number]/[facility] #: [id number] NOÉ
--- NOTE | 2018-11-09 19:45 | PN ---
Progress Note - Progress Note Date of Service: 11/09/18 Note: Post Op check: X-ray right knee all satisfactory. 98 degrees and VSStable. Awake, alert, cooperative and no marked distress. Breathing easily. Dressing right leg is dry and able to exercise her right hip, knee. Ankle moving up and down actively. DP pulse is 2 plus. Labs pending in the AM. Stable post op.
[2018-11-09] MEDS: Acetaminophen TAB* 325 MG PO SCH (21:45)
[2018-11-09] MEDS: Docusate CAP* 100 MG PO SCH (21:49)
[2018-11-10] MEDS: Ondansetron INJ* 2 MG/ML VIAL IV PRN ×2 (00:33→06:48)
[2018-11-10] MEDS: Lactated Ringers 1000 ML Bag* 1,000 ML IV SCH (00:36)
[2018-11-10] MEDS ORDERED: Clindamycin 600 MG/D5W BAG(*) 600 MG/50 ML BAG IV SCH (00:41)
[2018-11-10] MEDS: Clindamycin 600 MG/D5W BAG(*) 600 MG/50 ML BAG IV SCH ×2 (00:45→08:22)
[2018-11-10] MEDS: oxyCODONE/Acetamin 5/325 MG* TAB PO PRN ×4 (02:29→17:49)
[2018-11-10] MEDS: glipiZIDE TAB.XL* 5 MG PO SCH ×3 (03:20→20:16)
[2018-11-10] MEDS: traMADol TAB* 50 MG PO PRN ×2 (03:44→11:16)
[2018-11-10] MEDS: Acetaminophen TAB* 325 MG PO SCH ×3 (03:45→20:17)
[2018-11-10] MEDS: Cyclobenzaprine TAB* 10 MG PO PRN ×2 (04:35→15:19)
[2018-11-10] MEDS: oxyCODONE TAB* 5 MG TAB PO PRN ×4 (04:40→20:15)
[2018-11-10 06:51] LABS: Hematocrit 31 % (35-47); Hemoglobin 10.4 g/dl (12.0-16.0); Mean Platelet Volume 6.6 fL (7.4-10.4); Platelet Count 230 10^3/ul (150-450)
[2018-11-10 07:12] LABS: BUN/Creatinine Ratio 22.5 (8-20); Calcium 9.2 mg/dL (8.6-10.3); EGFR African American 204.4 (>60); Potassium 3.7 mmol/L (3.5-5.0)
[2018-11-10] MEDS: Aspirin TAB* 325 MG PO SCH (08:18)
[2018-11-10] MEDS: CMC:SitaGLIPtin (NF) 100 MG TAB PO SCH (08:18)
[2018-11-10] MEDS: Ferrous Sulfate TAB* 325 MG PO SCH (08:19)
[2018-11-10] MEDS: Sertraline* 100 MG TAB PO SCH (08:19)
[2018-11-10] MEDS: Multivitamins/Minerals TAB PO SCH (08:19)
[2018-11-10] MEDS: Pantoprazole TAB * 40 MG TAB PO SCH (08:19)
[2018-11-10] MEDS: Triamcinolone 0.5% OINT * 15 GM TUBE TOPICAL SCH (08:20)
[2018-11-10] MEDS: Insulin LISPRO* 1 UNITS UNIT SUBCUT SCH ×3 (08:20→17:49)
[2018-11-10] MEDS: Docusate CAP* 100 MG PO SCH ×2 (08:20→20:17)
[2018-11-10] MEDS ORDERED: [UNRECOGNIZED DRUG - OTHER] TOPICAL SCH (09:00)
[2018-11-10] MEDS ORDERED: BETAMETHASONE VAL 0.1% TOPICAL SCH (09:00)
[2018-11-10] MEDS: CALCIPOTRIENE TP SCH (10:30)
[2018-11-10] MEDS: BETAMETHASONE TP SCH (10:30)
[2018-11-10] MEDS ORDERED: Enoxaparin(*) 30 MG/0.3 ML SYR SUBCUT ONE (11:45)
--- NOTE | 2018-11-10 11:45 | PN ---
Progress Note - Progress Note Date of Service: 11/10/18 SOAP: Subjective: []Patient seen at bedside. Her right knee pain is rated at 7/10. Denies CP, SOB , dizziness or nausea. She desires to stay until tomorrow at which time she will DC to home. H&H not concerning at . Sodium low at 129. Objective: []General: Well appearing, NAD, laying comfortably in bed RLE: Right knee dressing CDI. 2 drains were removed with tip intact and without complication, roughly 200 ml of blood in the hemovac bag. Thigh is soft. DF/PF intact, DP2+, sensation intact to light touch distally. Assessment: []POD 1 sp right total knee arthroplasty Plan: []WBAT PT/OT lovenox 30 mg sq today, lovenox 40 mg sq tomorrow, aspirin 325 qd daily for 30 days celebrex 200 mg po BID added for pain control hyponatremia: fluid restrict to 1200 ml today, repeat tomorrow Plan for DC to home tomorrow Vital Signs Temp 97.9 F 11/10/18 07:30 Pulse 76 11/10/18 07:30 Resp 16 11/10/18 11:16 BP 133/57 11/10/18 07:30 Pulse Ox 96 11/10/18 07:42 Intake & Output 11/09/18 11/10/18 11/10/18 18:59 06:59 18:59 Intake Total 170 3160 1010 Output Total 150 3670 1150 Balance 20 -510 -140 Intake: IV Fluids 50 1010 900 LR 0 960 900 NS 50ML, Cefazolin 2G 50 abx-clindamycin 50 IVPB 110 abx-clindamycin 110 Oral 120 2150 Output: Hemovac Amount #1 120 Urine 1150 Lynn 150 2550 Emesis 1000 Other: Estimated Void Large # Bowel Movements 0 # Voids 1 Laboratory Last Values Hgb 10.4 g/dl (12.0-16.0) L 11/10/18 06:21 Hct 31 % (35-47) L 11/10/18 06:21 Plt Count 230 10^3/ul (150-450) 11/10/18 06:21 MPV 6.6 fL (7.4-10.4) L 11/10/18 06:21 Sodium 129 mmol/L (135-145) L 11/10/18 06:21 Potassium 3.7 mmol/L (3.5-5.0) 11/10/18 06:21 Chloride 98 mmol/L (101-111) L 11/10/18 06:21 Carbon Dioxide 24 mmol/L (22-32) 11/10/18 06:21 Anion Gap 7 mmol/L (2-11) 11/10/18 06:21 BUN 9 mg/dL (6-24) 11/10/18 06:21 Creatinine 0.40 mg/dL (0.51-0.95) L 11/10/18 06:21 Est GFR ( Amer) 204.4 (>60) 11/10/18 06:21 Est GFR (Non-Af Amer) 169.0 (>60) 11/10/18 06:21 BUN/Creatinine Ratio 22.5 (8-20) H 11/10/18 06:21 Glucose 169 mg/dL (70-100) H 11/10/18 06:21 POC Glucose (mg/dL) 155 mg/dL (70-100) H 11/10/18 07:33 Calcium 9.2 mg/dL (8.6-10.3) 11/10/18 06:21
[2018-11-10] MEDS ORDERED: Ketorolac INJ* 30 MG/ML 1 ML VIAL IV ONE (17:55)
[2018-11-10] MEDS ORDERED: Ketorolac INJ* 30 MG/ML 1 ML VIAL ONE (17:58)
[2018-11-11] MEDS: oxyCODONE/Acetamin 5/325 MG* TAB PO PRN ×3 (00:07→08:29)
[2018-11-11] MEDS: Ketorolac INJ* 15 MG/ML 1 ML VIAL IV PUSH PRN ×2 (00:08→06:43)
[2018-11-11] MEDS: oxyCODONE TAB* 5 MG TAB PO PRN ×3 (02:33→11:07)
[2018-11-11] MEDS: Acetaminophen TAB* 325 MG PO SCH ×2 (04:10→11:50)
[2018-11-11 07:13] LABS: Hematocrit 30 % (35-47); Mean Platelet Volume 6.6 fL (7.4-10.4); Platelet Count 215 10^3/ul (150-450)
[2018-11-11] MEDS: Insulin LISPRO* 1 UNITS UNIT SUBCUT SCH ×2 (07:45→12:36)
[2018-11-11] MEDS: Aspirin TAB* 325 MG PO SCH (08:27)
[2018-11-11] MEDS: CMC:SitaGLIPtin (NF) 100 MG TAB PO SCH (08:27)
[2018-11-11] MEDS: Multivitamins/Minerals TAB PO SCH (08:27)
[2018-11-11] MEDS: Ferrous Sulfate TAB* 325 MG PO SCH (08:27)
[2018-11-11] MEDS: Cyclobenzaprine TAB* 10 MG PO PRN (08:27)
[2018-11-11] MEDS: glipiZIDE TAB.XL* 5 MG PO SCH ×2 (08:28→13:57)
[2018-11-11] MEDS: Docusate CAP* 100 MG PO SCH (08:28)
[2018-11-11] MEDS: Sertraline* 100 MG TAB PO SCH (08:28)
[2018-11-11] MEDS: Pantoprazole TAB * 40 MG TAB PO SCH (08:29)
[2018-11-11] MEDS: CALCIPOTRIENE TP SCH (09:17)
[2018-11-11] MEDS: BETAMETHASONE TP SCH (09:17)
[2018-11-11] MEDS: Triamcinolone 0.5% OINT * 15 GM TUBE TOPICAL SCH (09:40)
--- NOTE | 2018-11-11 10:09 | PN ---
Progress Note - Progress Note Date of Service: 11/11/18 SOAP: Subjective: []Patient was seen at bedside. Her pain is well controlled today. She denies any chest pain, shortness of breath, dizziness or nausea. She has met her goals with PT. Hyponatremia has resolved. Patient is agreeable to DC home today as long as she has the opportunity to gain confidence with walking on her own with a walker. Objective: []General: Well appearing, NAD, laying comfortably in bed RLE: Right knee dressing changed, incision is CDI. Thigh is soft. DF/PF intact, DP2+, sensation intact to light touch distally. Calves supple and nontender without erythema, edema or palpable cords. Assessment: []POD 2 sp right total knee arthroplasty Plan: []WBAT PT/OT Lovenox 40 mg sq today, aspirin 325 qd daily for 30 days Celebrex 200 mg po BID added for pain control No longer fluid restricted, continue carb consistent diet Plan for DC to home tonight after further practice with walking. Patient will plan to DC when her gets home from work tonight. Vital Signs Temp 98.8 F 11/11/18 07:58 Pulse 86 11/11/18 07:58 Resp 18 11/11/18 09:16 BP 156/85 11/11/18 07:58 Pulse Ox 95 11/11/18 08:00 Intake & Output 11/10/18 11/11/18 11/11/18 18:59 06:59 18:59 Intake Total 1360 300 Output Total 3350 850 700 Balance -1989 -550 -700 Intake: IV Fluids 900 LR 900 IVPB 110 abx-clindamycin 110 Oral 350 300 Output: Urine 3350 850 700 Other: Estimated Void Medium Medium # Voids 1 2 Laboratory Last Values Hgb 10.0 g/dl (12.0-16.0) L 11/11/18 06:30 Hct 30 % (35-47) L 11/11/18 06:30 Plt Count 215 10^3/ul (150-450) 11/11/18 06:30 MPV 6.6 fL (7.4-10.4) L 11/11/18 06:30 Sodium 138 mmol/L (135-145) D 11/11/18 06:30 Potassium 3.7 mmol/L (3.5-5.0) 11/10/18 06:21 Chloride 98 mmol/L (101-111) L 11/10/18 06:21 Carbon Dioxide 24 mmol/L (22-32) 11/10/18 06:21 Anion Gap 7 mmol/L (2-11) 11/10/18 06:21 BUN 9 mg/dL (6-24) 11/10/18 06:21 Creatinine 0.40 mg/dL (0.51-0.95) L 11/10/18 06:21 Est GFR ( Amer) 204.4 (>60) 11/10/18 06:21 Est GFR (Non-Af Amer) 169.0 (>60) 11/10/18 06:21 BUN/Creatinine Ratio 22.5 (8-20) H 11/10/18 06:21 Glucose 169 mg/dL (70-100) H 11/10/18 06:21 POC Glucose (mg/dL) 130 mg/dL (70-100) H 11/11/18 07:39 Calcium 9.2 mg/dL (8.6-10.3) 11/10/18 06:21
--- NOTE | 2018-11-11 11:34 | DS ---
AMENDED REPORT NOW INCLUDES COSIGNER DESIGNATION DATE OF ADMISSION: 11/09/2018. DATE OF DISCHARGE: 11/11/2018. ATTENDING SURGEON: Dr. Oumar Hernandez * (dictated by SOFIA Gonzalez). DATE OF OPERATION: 11/09/2018. PREOPERATIVE DIAGNOSIS: Severe arthritis of the right knee. OPERATIVE PROCEDURE: Right total knee replacement. HISTORY: Persistent right knee pain with severe disability and severe arthritis. The patient elected to undergo right total knee arthroplasty. HOSPITAL COURSE: The patient was admitted to [facility] on 2018. She underwent a right total knee arthroplasty without complication. Postop day one, she was well-appearing, in no acute distress. Right knee dressing was clean, dry, and intact. Two drains were removed with the tip intact and without complication with roughly 200 ml of blood in the Hemovac bag. Thigh is soft. Dorsiflexion and plantarflexion intact. DP pulse 2+. Sensation intact to light touch distally. The patient was fluid restricted due to hyponatremia with a sodium of 129. Postop day one, she was given 30 mg of Lovenox subcu as well as aspirin 325 mg for DVT prophylaxis. Postop day two, she is well-appearing, in no acute distress. Right knee dressing was changed. Incision was clean, dry, and intact. Thigh was soft. Dorsiflexion and plantarflexion intact. DP pulse 2+. Sensation intact to light touch distally. Hyponatremia has resolved with a sodium of 138. Vital signs: Temperature 98.8 , pulse 86, respiratory rate 18, blood pressure 156/85, pulse ox 95. Today, she was given Lovenox 40 mg subcu as well as 325 mg of aspirin. The patient was medically and orthopedically stable for discharge home. DISCHARGE MEDICATIONS: 1. Glipizide 10 mg p.o. t.i.d. 2. Multivitamin with folic acid one tab p.o. q.a.m. 3. Ibuprofen 600 mg p.o. q.12 hours prn. 4. Apple cider vinegar 450 mg p.o. b.i.d. 5. Fish oil 1200 mg soft gel b.i.d. 6. Milk Thistle 175 mg p.o. q.a.m. 7. Magnesium Citrate 100 mg p.o. b.i.d. 8. Sertraline 100 mg p.o. q.a.m. 9. Calcipotriene-Betamethasone 100 gm topically q.a.m. 10. Triamcinolone 0.5% cream one topical application in the morning. 11. Betamethasone 0.1% one topical application q.a.m. 12. Sitagliptin 100 mg p.o. q.a.m. 13. Cholecalciferol 2,000 units p.o. q.a.m. 14. Ferrous Sulfate 325 mg p.o. q.a.m. 15. Pantoprazole 40 mg p.o. q.a.m. 16. Aspirin 325 mg p.o. daily for 30 days. 17. Docusate 100 mg p.o. b.i.d. prn constipation. 18. Percocet 5/325 one to two tabs every 4 to 6 hours as needed for pain. 19. acetaminophen 975 mg p.o. q.8 hours prn. DISCHARGE INSTRUCTIONS: Weightbearing as tolerated. Okay to shower. Aspirin 325 mg daily for 30 days to prevent blood clots. Visiting home nurse to remove dayana in 10 to 12 days and do wound checks. Pain control with Percocet 5/325 one to two tabs every 4 to 6 hours as needed for pain, maximum of 10 tabs per day. Follow-up with Dr. Hernandez in four to six weeks or sooner with any concerns. SOFIA NAIDU [id number]/[facility] #: [id number] NOÉ
[2018-11-11] MEDS ORDERED: Enoxaparin(*) 30 MG/0.3 ML SYR SUBCUT ONE (11:45)
[2018-11-11] MEDS ORDERED: Enoxaparin(*) 40 MG/0.4 ML SYR SUBCUT ONE (12:30)
[2018-11-11] MEDS ORDERED: celeCOXIB CAP* 200 MG PO PRN (15:30)
[2018-11-11 16:08] VITALS: BP 156/82
== END 2018-11-11 17:30 | disposition home health service (06) | DRG 302 ==
LOC: AA 05:46 → SSU 13:45
PROVIDERS: ADMIT Orthopaedic Surgery; ATTEND Orthopaedic Surgery
PROC: 0SRC0J9 Replacement of Right Knee Joint with Synthetic Substitute, Cemented, Open Approach (ICD-10-PCS; principal; 2018-11-09 07:30)
DX: M17.11 Unilateral primary osteoarthritis, right knee (principal); E87.1 Hypo-osmolality and hyponatremia; F33.0 Major depressive disorder, recurrent, mild; E11.9 Type 2 diabetes mellitus without complications; F17.210 Nicotine dependence, cigarettes, uncomplicated; K21.9 Gastro-esophageal reflux disease without esophagitis; N39.3 Stress incontinence (female) (male); L40.9 Psoriasis, unspecified; M25.761 Osteophyte, right knee; G89.29 Other chronic pain; E66.9 Obesity, unspecified; E78.2 Mixed hyperlipidemia; M19.079 Primary osteoarthritis, unspecified ankle and foot; Z82.49 Family history of ischemic heart disease and other diseases of the circulatory system; Z84.0 Family history of diseases of the skin and subcutaneous tissue; Z56.0 Unemployment, unspecified; Z68.35 Body mass index [BMI] 35.0-35.9, adult; Z72.89 Other problems related to lifestyle; Z79.84 Long term (current) use of oral hypoglycemic drugs; Z83.3 Family history of diabetes mellitus; Z90.711 Acquired absence of uterus with remaining cervical stump; Z88.1 Allergy status to other antibiotic agents; Z88.8 Allergy status to other drugs, medicaments and biological substances; Z82.61 Family history of arthritis
CPT/HCPCS: 36415; 80048; 84300; 85014; 85018; 85049; A9270-GY; J1100; J1170; J1650; J1885; J2250; J2405; J2704; J2710; J2765; J2795; J3010

== ENCOUNTER 2019-05-02 23:23 | Emergency (ER) | payer OTHER ==
[2019-05-03] MEDS ORDERED: traMADol TAB* 50 MG PO ONE (01:21)
--- NOTE | 2019-05-03 01:42 | ED ---
Lower Extremity - HPI Summary HPI Summary: This pt is a 48 Y/O F presenting to [facility] with a CC of R knee swelling and pain after a fall she had [employer]. She stated that she tripped over a rug at home and landed on her R knee. She stated that she was able to ambulate by herself. She had a recent knee replacement surgery November 09, 2018 on the same knee that she fell on. She rated the pain a 5/10 in severity and stated that she had no alleviating factors. She stated that walking made the pain worse. She denies any CP, SOB, N/V, headaches, head injury, or fevers. - History of Current Complaint Chief Complaint: EDExtremityLower Stated Complaint: FELL ON KNEE AFTER KNEE REPLACEMENT PER PT Time Seen by Provider: 05/03/19 01:10 Hx Obtained From: Patient Mechanism Of Injury: Fall From A Standing Position Onset of Pain: Immediate Onset/Duration: Still Present Severity Initially: Moderate Severity Currently: Moderate Pain Intensity: 5 Pain Scale Used: 0-10 Numeric Timing: Constant Location: Is Discrete @ - R knee cap Associated Signs And Symptoms: Positive: Negative - CP, SOB, N/V, headaches, hrad injury., Swelling, Redness, Knee Pain - R knee pain. Negative: Fever Aggravating Factor(s): Movement Alleviating Factor(s): Nothing Able to Bear Weight: Yes - Allergies/Home Medications Allergies/Adverse Reactions: Allergies Allergy/AdvReac Type Severity Reaction Status Date / Time metformin Allergy Intermediate Shortness Verified 05/03/19 00:33 of Breath amoxicillin AdvReac Severe GI Upset Verified 05/03/19 00:33 PMH/Surg Hx/FS Hx/Imm Hx Previously Healthy: Yes Endocrine/Hematology History: Reports: Hx Diabetes Cardiovascular History: Denies: Hx Hypertension, Hx Pacemaker/ICD GI History: Reports: Hx Gastroesophageal Reflux Disease History: Denies: Hx Dialysis, Hx Renal Disease Musculoskeletal History: Reports: Hx Arthritis Denies: Hx Rheumatoid Arthritis, Hx Osteoporosis Sensory History: Denies: Hx Contacts or Glasses, Hx Hearing Aid Opthamlomology History: Denies: Hx Contacts or Glasses Neurological History: Reports: Hx Headaches - ONCE IN A WHILE Psychiatric History: Reports: Hx Anxiety - ON MEDICATION FOR, Hx Depression - ON MEDICATION FOR Denies: Hx Panic Disorder - Cancer History Hx Chemotherapy: No Hx Radiation Therapy: No - Surgical History Surgery Procedure, Year, and Place: Partial hysterectomy 2012. RIGHT KNEE [id number]. CARPAL TUNNEL RIGHT HAND. LUMPECTOMY Hx Anesthesia Reactions: No Infectious Disease History: No Infectious Disease History: Denies: Traveled Outside the [place] in Last 30 Days - Family History Known Family History: Positive: Cardiac Disease, Blood Disorder Family History: Father: CHF. Brother and sister: Hepatitis C - Social History Alcohol Use: Weekly Alcohol Amount: 5 BEERS - 2 TIMES PER WEEK Substance Use Type: Reports: None Hx Tobacco Use: Yes Smoking Status (MU): Current Some Day Smoker Amount Used/How Often: 5 CIGARETTES PER DAY X 7 YEARS ON AND OFF Review of Systems Negative: Fever ENT: Other - head injury: negative Negative: Chest Pain Negative: Shortness Of Breath Negative: Vomiting, Nausea Positive: Myalgia - R knee pain Negative: Headache All Other Systems Reviewed And Are Negative: Yes Physical Exam - Summary Physical Exam Summary: VITAL SIGNS: Reviewed. GENERAL: Patient is a well-developed and nourished female who is lying comfortable in the stretcher. Patient is not in any acute respiratory distress. HEAD AND FACE: No signs of trauma. No ecchymosis, hematomas or skull depressions. No sinus tenderness. EYES: PERRLA, EOMI x 2, No injected conjunctiva, no nystagmus. EARS: Hearing grossly intact. Ear canals and tympanic membranes are within normal limits. MOUTH: Oropharynx within normal limits. NECK: Supple, trachea is midline, no adenopathy, no JVD, no carotid bruit, no c- spine tenderness, neck with full ROM CHEST: Symmetric, no tenderness at palpation LUNGS: Clear to auscultation bilaterally. No wheezing or crackles. CVS: Regular rate and rhythm, S1 and S2 present, no murmurs or gallops appreciated. ABDOMEN: Soft, R knee is tender to palpation and swollen. No signs of distention. No rebound no guarding, and no masses palpated. Bowel sounds are normal. EXTREMITIES: FROM in all major joints, no edema, no cyanosis or clubbing. NEURO: Alert and oriented x 3. No acute neurological deficits. Speech is normal and follows commands. SKIN: Dry and warm Triage Information Reviewed: Yes Vital Signs On Initial Exam: Initial Vitals Temp Pulse Resp BP Pulse Ox 100.1 F 120 18 163/114 97 05/02/19 23:25 05/02/19 23:25 05/02/19 23:25 05/02/19 23:25 05/02/19 23:25 Vital Signs Reviewed: Yes Diagnostics - Vital Signs Vital Signs Temp Pulse Resp BP Pulse Ox 05/02/19 23:25 100.1 F 120 18 163/114 97 - Laboratory Lab Statement: Any lab studies that have been ordered have been reviewed, and results considered in the medical decision making process. - Radiology Knee X-Ray Radiology Interpretation Completed By: ED Physician Summary of Radiographic Findings: No signs of acute Fx. Soft tissue swelling consistent with a hematoma. Pending offical review. Lower Extremity Course/Dx - Course Course Of Treatment: This pt is a 48 Y/O F presenting to [facility] with a CC of R knee pain that she sustained after tripping on her carpet. She stated that the knee she landed on is the same one she had a knee replacement surgery on in November 09, 2018. Her PE found that she had swelling, tenderness, and readness about the R knee. Her neurological exam was good and she did not show any neurological defects. He PE findings are consistent with a soft tissue hematoma. Her Knee X-Ray showed no acute Fx, but showed soft tissue swelling which is consistent with a hematoma. She will be discharged home with a Dx of a soft tissue hematoma and given instructions to ice and elevate her R knee until it is healed. - Diagnoses Provider Diagnoses: Nontraumatic hematoma of soft tissue Discharge - Sign-Out/Discharge Documenting (check all that apply): Patient Departure - discharge Patient Received Moderate/Deep Sedation with Procedure: No - Discharge Plan Condition: Stable Disposition: HOME Prescriptions: traMADol TAB* [Ultram*] 50 mg PO Q6HR PRN #20 tab MDD 4 PRN Reason: Pain - Moderate Patient Education Materials: Hematoma (ED) Referrals: Kimberly Poole MD [Primary Care Provider] - 2 Days Additional Instructions: PLEASE RETURN TO THE ED IMMEDIATELY FOR WORSENING OR CONCERNING SYMPTOMS AND FOLLOW UP WITH YOUR PRIMARY CARE PHYSICIAN IN 1-3 DAYS. Please ice and elevte your R knee until it is healed. Take the medications as prescribed. - Attestation Statements Document Initiated by Scribe: Yes Documenting Scribe: Munir Veras Provider For Whom Scribe is Documenting (Include Credential): Jaxon Summers MD Scribe Attestation: Munir Moss, scribed for Jaxon Summers MD on 05/03/19 at 0148. Status of Scribe Document: Ready
[2019-05-03 02:02] VITALS: BP 168/98
== END 2019-05-03 02:01 | disposition home or self-care (01) ==
LOC: ED 23:23
DX: M79.81 Nontraumatic hematoma of soft tissue (principal); M25.561 Pain in right knee; Z96.651 Presence of right artificial knee joint; E11.9 Type 2 diabetes mellitus without complications; F41.9 Anxiety disorder, unspecified; F32.9 Major depressive disorder, single episode, unspecified; Z88.0 Allergy status to penicillin; Z88.8 Allergy status to other drugs, medicaments and biological substances; Z72.0 Tobacco use
CPT/HCPCS: 99282; A9270-GY